=== PATIENT | female | born 1985 | race Caucasian/White ===

== ENCOUNTER 2017-02-18 22:08 | Emergency (ER) | payer BC, OTHER ==
[~2017-02-18] VITALS: Ht 162.6 cm; Wt 137.2 kg
[~2017-02-18 22:08] MED LIST: AZAT50TA17 PO; CLON0.5T3 PO; DICY10CA55 PO
[2017-02-18 22:10] VITALS: TEMP 36.6; Ht 162.6 cm; Wt 137.2 kg
[2017-02-18] MEDS ORDERED: ONDANSETRON INJ 2 MG/ML 2 ML VIAL IV STA (22:51)
[2017-02-18] MEDS ORDERED: SODIUM CHLORIDE 0.9% 1000ML 1,000 ML IV ONE (23:00)
[2017-02-18] MEDS ORDERED: MoRPHine SULFATE 4 MG/ML 1 ML CARP\\VIAL IV ONE (23:00)
[2017-02-18] MEDS ORDERED: SERT50TA PO (23:04)
[2017-02-18 23:24] LABS: BASO % 0.3 %; BASO ABS # 0.03 K/uL (0-0.2); COMPLETE YES; EOS % 1.1 %; IG% 0.3 %; LYMPH % 25.7 %; LYMPH ABS # 2.59 K/uL (1.2-3.4); MEAN CELL VOLUME 87.6 fL (80-100); MEAN CORPUSCULAR HEMOGLOBIN 29.7 pg (25-34); MEAN CORPUSCULAR HGB CONC 33.9 g/dl (32-36); MEAN PLATELET VOLUME 8.9 fL (7.4-10.4); MONO % 6.9 %; NEUT % 65.7 %; PLATELET COUNT 278 K/uL (130-400); RED BLOOD COUNT 4.11 M/uL (4.2-5.4); WHITE BLOOD COUNT 10.08 K/uL (4.8-10.8)
[2017-02-18 23:27] LABS: URINE APPEARANCE TURBID (CLEAR); URINE COLOR ORANGE; URINE EPITHELIAL CELL AUTO >30 /lpf (0-5); URINE NITRITE POS (NEG); URINE SPECIFIC GRAVITY 1.043 (1.000-1.030); UROBILINOGEN NEG (NEG); ZZUR CULT IF INDIC CLEAN CATCH NO
[2017-02-18 23:48] LABS: MANUAL MICROSCOPIC REQUIRED? NO; REVIEW REQ? NO; URINE BILIRUBIN NEG (NEG)
[2017-02-18 23:53] LABS: ALB/GLOB RATIO 0.7 (0.9-2); BUN/CREATININE RATIO 10.2 (10-20); CALCIUM 8.5 mg/dl (8.5-10.1); CREATININE 0.8 mg/dl (0.60-1.20)
[2017-02-18 23:55] LABS: POTASSIUM 3.7 mmol/L (3.5-5.1)
[2017-02-19] MEDS ORDERED: KETOROLAC TROMETHAMINE 30 MG/ML VIAL IV STA (00:44)
[2017-02-19 01:04] VITALS: BP 137/85; PULSE 91; O2SAT 100
--- NOTE | 2017-02-19 02:35 | EMERGENCY ROOM VISIT NOTE ---
History First contact with patient: 22:36 Chief Complaint: VAGINAL BLEEDING Stated Complaint: VAGINAL BLEEDING,CRAMPING History of Present Illness The patient is a 31 year old female who presents to the Emergency Room with complaints of vaginal bleeding that began about 2 hours ago. The patient states that she was standing in her kitchen, when she felt a gush of blood. She went to the bathroom and was passing large amounts of blood and clots. She then began with some abdominal cramping that is a little worse in the right side of her belly. She does not believe that she is . She states that her last menstrual period was 6 weeks ago. She has not taken anything over-the- counter for her discomfort. She rates her overall pain a 3/10. Review of Systems More than 10 systems were reviewed and otherwise negative with the exception of history of present illness. Past Medical/Surgical History Medical Problems: (1) Crohn's disease (2) Rectal fistula Surgical Problems: (1) s/p adenoidectomy (2) S/p total colectomy (3) s/p tympanostomy Family History Diabetes Gallbladder disease Hypertension Kidney disease/stones Social History Smoking Status: Never Smoker Alcohol Use: none Drug Use: none Marital Status: Occupation Status: employed Current/Historical Medications Scheduled Azathioprine (Imuran), 100 MG PO QAM Sertraline (Zoloft), 50 MG PO DAILY Scheduled PRN Clonazepam (Klonopin), 0.5 MG PO TID PRN for Anxiety Allergies Coded Allergies: Infliximab (Verified Allergy, Severe, SOB, FACE FLUSHING, 02/18/17) Physical Exam Vital Signs Date Time Temp Pulse Resp B/P (MAP) Pulse Ox O2 Delivery O2 Flow Rate FiO2 02/19/17 01:04 91 16 137/85 100 02/18/17 22:10 36.6 98 18 149/88 99 Room Air Pain Rating (0-10): 2.0 Physical Exam VITALS: Vitals are noted on the nurse's note and reviewed by myself. Vital signs stable. GENERAL: Well-developed, well-nourished, white female, who is in no acute distress and resting comfortably. Patient is cooperative with the examination. HEAD: Normocephalic atraumatic. HEART: Regular rate and rhythm without murmurs gallops or rubs. LUNGS: Clear to auscultation bilaterally without wheezes, rales or rhonchi. No retractions or accessory muscle use. ABDOMEN: Positive normal bowel sounds x 4. Soft, nontender, without masses or organomegaly. No guarding or rebound tenderness. No significant lower/pelvic tenderness. No CVA tenderness. MUSCULOSKELETAL: No muscle atrophy, erythema, or edema noted. Full range of motion without joint tenderness in all extremities. Medical Decision & Procedures ER Provider Diagnostic Interpretation: Preliminary Findings Only See Final Report For Complete Findings US PELVIC/ENDOVAG: Endometrium is unremarkable measuring 15 mm. The uterus is unremarkable. No masses. Nabothian cysts are noted within the cervix. Simple cyst seen within the right ovary measuring up to 2.7 cm. Otherwise, the ovaries are unremarkable. No free fluid within the pelvis. Laboratory Results 02/18/17 23:05 Red Blood Count 4.11, Mean Corpuscular Volume 87.6, Mean Corpuscular Hemoglobin 29.7, Mean Corpuscular Hemoglobin Concent 33.9, Mean Platelet Volume 8.9, Neutrophils (%) (Auto) 65.7, Lymphocytes (%) (Auto) 25.7, Monocytes (%) (Auto) 6.9, Eosinophils (%) (Auto) 1.1, Basophils (%) (Auto) 0.3, Neutrophils # (Auto) 6.62, Lymphocytes # (Auto) 2.59, Monocytes # (Auto) 0.70, Eosinophils # (Auto) 0.11, Basophils # (Auto) 0.03 02/18/17 23:05 Test 02/18/17 23:05 White Blood Count 10.08 K/uL (4.8-10.8) Red Blood Count 4.11 M/uL (4.2-5.4) Hemoglobin 12.2 g/dL (12.0-16.0) Hematocrit 36.0 % (37-47) Mean Corpuscular Volume 87.6 fL (80-100) Mean Corpuscular Hemoglobin 29.7 pg (25-34) Mean Corpuscular Hemoglobin Concent 33.9 g/dl (32-36) Platelet Count 278 K/uL (130-400) Mean Platelet Volume 8.9 fL (7.4-10.4) Neutrophils (%) (Auto) 65.7 % Lymphocytes (%) (Auto) 25.7 % Monocytes (%) (Auto) 6.9 % Eosinophils (%) (Auto) 1.1 % Basophils (%) (Auto) 0.3 % Neutrophils # (Auto) 6.62 K/uL (1.4-6.5) Lymphocytes # (Auto) 2.59 K/uL (1.2-3.4) Monocytes # (Auto) 0.70 K/uL (0.11-0.59) Eosinophils # (Auto) 0.11 K/uL (0-0.5) Basophils # (Auto) 0.03 K/uL (0-0.2) RDW Standard Deviation 45.7 fL (36.4-46.3) RDW Coefficient of Variation 14.1 % (11.5-14.5) Immature Granulocyte % (Auto) 0.3 % Immature Granulocyte # (Auto) 0.03 K/uL (0.00-0.02) Urine Color ORANGE Urine Appearance TURBID (CLEAR) Urine pH 5.0 (4.5-7.5) Urine Specific [place] 1.043 (1.000-1.030) Urine Protein 1+ (NEG) Urine Glucose (UA) NEG (NEG) Urine Ketones TRACE (NEG) Urine Occult Blood 3+ (NEG) Urine Nitrite POS (NEG) Urine Bilirubin NEG (NEG) Urine Urobilinogen NEG (NEG) Urine Leukocyte Esterase SMALL (NEG) Urine WBC (Auto) 5-10 /hpf (0-5) Urine RBC (Auto) >30 /hpf (0-4) Urine Hyaline Casts (Auto) 5-10 /lpf (0-5) Urine Epithelial Cells (Auto) >30 /lpf (0-5) Urine Bacteria (Auto) NEG (NEG) Urine Test NEG (NEG) Anion Gap 10.0 mmol/L (3-11) Est Creatinine Clear Calc Drug Dose 142.4 ml/min Estimated GFR () 114.7 Estimated GFR (Non- 98.9 BUN/Creatinine Ratio 10.2 (10-20) Calcium Level 8.5 mg/dl (8.5-10.1) Total Bilirubin 0.3 mg/dl (0.2-1) Aspartate Amino Transf (AST/SGOT) 19 U/L (15-37) Alanine Aminotransferase (ALT/SGPT) 25 U/L (12-78) Alkaline Phosphatase 83 U/L (45-117) Total Protein 8.3 gm/dl (6.4-8.2) Albumin 3.3 gm/dl (3.4-5.0) Globulin 5.0 gm/dl (2.5-4.0) Albumin/Globulin Ratio 0.7 (0.9-2) Human Chorionic Gonadotropin, Quant < 1 mIU/mL Chemistry Specimen Hemolysis Medications Administered Medications (Trade) Dose Ordered Sig/[place] Route Start Time Stop Time Status Last Admin Dose Admin Morphine Sulfate (MoRPHine SULFATE INJ) 4 mg NOW ONCE IV 02/18/17 23:00 02/18/17 23:01 DC 02/18/17 23:27 4 MG Sodium Chloride 1,000 ml @ 999 mls/hr Q1H1M ONCE IV 02/18/17 23:00 02/19/17 00:00 DC 02/18/17 23:27 999 MLS/HR Ondansetron HCl (Zofran Inj) 4 mg NOW STAT IV 02/18/17 22:51 02/18/17 22:53 DC 02/18/17 23:27 4 MG Ketorolac Tromethamine (Toradol Inj) 30 mg NOW STAT IV 02/19/17 00:44 02/19/17 00:45 DC 02/19/17 00:49 30 MG ED Course Physical exam and history were performed. Nursing notes and EMR were reviewed. Patient appears to have vaginal bleeding for the past 2 hours. The patient states her last menses was 6 weeks ago. IV access was established and labs were obtained. Urine was negative. The patient was hydrated medicated as above. Pelvic exam was discussed and deferred pending blood work and ultrasound. The patient's blood work is as above and was reviewed. She does not have a significant elevated white blood cell count, gross anemia, bandemia, or significant electrolyte imbalance. Her hCG quantitative is less than 1. Ultrasound does not show evidence of significant intrauterine findings. She does have a right sided ovarian cyst, and this may correlate with her right- sided pelvic pain. Overall the patient felt much better after hydration medication here in the department. She is certainly not hemorrhaging, and her bleeding has slowed significantly. Clinically I suspect that she is having the start of her menses , as her cycle appears atypical. She does have an appointment tomorrow with her primary care physician for further care and management. It seems reasonable that she follow up with them for further care and management. The patient was pleased with this plan and voiced understanding. She was discharged home under the care of a male tape rules printing machine operator who is acting as the river driver. The chart was completed utilizing [email or web address] Speech Voice Recognition Software. Grammatical errors, random word insertions, pronoun errors, and incomplete sentences are an occasional consequence of this system due to software limitations, ambient noise, and hardware issues. Any formal questions or concerns about the content, text, or information contained within the body of this dictation should be directly addressed to the provider for clarification. . Medical Decision Differential diagnosis: Etiologies such as ectopic , dysfunction uterine bleeding, bleeding dyscrasia, trauma, infection, as well as others were entertained. Impression Primary Impression: Vaginal bleeding Departure Information Dispostion Home / Self-Care Condition FAIR Referrals Honey Nolasco D.O. (PCP) Forms HOME CARE DOCUMENTATION FORM, IMPORTANT VISIT INFORMATION Patient Instructions My [facility] Additional Instructions You were seen and evaluated today on an emergency basis only. This is not a substitute for, or an effort to provide, complete comprehensive medical care. It is not possible to recognize and treat all injuries or illnesses in a single emergency department visit. For this reason it is recommended that you followup with your primary care physician tomorrow as scheduled. For baseline pain relief you may alternate ibuprofen and acetaminophen every 4 hours for pain control. Take 600 mg ibuprofen (Advil) and then 4 hours later take 1000 mg acetaminophen (Tylenol). Do not take more than 3000 mg acetaminophen in a single day. You are welcome to return to the emergency department anytime with new, worsening, or concerning symptoms.
--- NOTE | 2017-02-19 06:48 | DIAGNOSTIC IMAGING REPORT ---
EXAMINATION: PELVIC ULTRASOUND (transabdominal and endovaginal scanning) CLINICAL HISTORY: Vag bleeding COMPARISON STUDY: 02/18/2015 FINDINGS: The uterus measured 9.3 x 5 x 6.1 cm. The endometrial stripe measured 15 mm. The right ovary measured 51 x 20 x 29 mm. There is a dominant 27 mm follicle.. The left ovary measured 38 x 30 x 29 mm.. There is no ultrasonographic evidence of ovarian torsion. It should be noted that ovarian torsion can be present with normal Doppler ultrasonographic findings. There was no evidence of pathologic free pelvic fluid. IMPRESSION: 1. 15 mm endometrial stripe 2. No uterine masses identified. 3. 27 mm right ovarian follicle Electronically signed by: Edy Moon M.D. 02/19/2017 6:46 AM Dictated Date/Time: 02/19/2017 6:45 AM
[2017-06-13] MEDS ORDERED: DICY10CA55 PO (11:49)
[2017-06-13] MEDS ORDERED: DROS1TAB24 PO (11:49)
== END 2017-02-19 01:05 | disposition home or self-care (01) ==
LOC: C.EDB 22:09 → C.EDC 02-19 01:05
DX: N93.9 Abnormal uterine and vaginal bleeding, unspecified (principal); N83.201 Unspecified ovarian cyst, right side; K50.90 Crohn's disease, unspecified, without complications; Z90.49 Acquired absence of other specified parts of digestive tract; Z83.3 Family history of diabetes mellitus; Z82.49 Family history of ischemic heart disease and other diseases of the circulatory system; Z84.1 Family history of disorders of kidney and ureter; Z79.899 Other long term (current) drug therapy

== ENCOUNTER → 2017-06-21 | Day surgery (SDC) | payer BC ==
[2017-06-13 11:49] VITALS: BMI 51.0
[~2017-06-21] VITALS: Ht 162.6 cm; Wt 136.4 kg
[~2017-06-21] MED LIST changes: +DROS1TAB24 PO; +KETAMINE HCL INJ 50 MG/ML 10 ML VIAL ONE; +LIDOCAINE HCL 2% 2 ML VIAL (20MG/ML) ONE; +MIDAZOLAM HCL 1 MG/ML 2ML VIAL ONE; +OXYC1TAB3 PO; +PROPOFOL IV EMULSION 10 MG/ML 20 ML VIAL IV ONE; +SERT50TA PO; +SODIUM CHLORIDE 0.9% 500ML 500 ML IV ONE; +SODIUM CHLORIDE 0.9% INJ 10 ML VIAL ONE
[2017-06-21 08:08] VITALS: Ht 162.6 cm; Wt 136.4 kg
[2017-06-21 08:15] VITALS: TEMP 36.8
--- NOTE | 2017-06-21 08:53 | Endo History and Physical ---
History & Physical Date of Service: Jun 21, 2017. Chief Complaint: CHRONS Referring Physician: DR. AGUEDA SNEED History of Present Illness crohns Past Medical History Reflux, Other Past Surgical History Hx Cardiac Surgery: No Hx Internal Defibrillator: No Hx Pacemaker: No Hx Abdominal Surgery: Yes (COLON RESECTION) Hx of Implantable Prosthesis: No Hx Post-Op Nausea and Vomiting: No Hx Cancer Surgery: No Hx Thoracic Surgery: No Hx Orthopedic: No Hx Urinary Tract Surgery: No Family History None Social History Smoking Status: Never Smoker Hx Substance Use: No Hx Alcohol Use: No Allergies Coded Allergies: Infliximab (Verified Allergy, Severe, SOB, FACE FLUSHING, 06/21/17) Current Medications Reported Home Medications Medications Dose Route/Sig Max Daily Dose Days Date Category Yun (Drospirenone-Ethinyl Estradiol) 1 Tab Tab 1 Tab PO HS 06/13/17 Reported Bentyl (Dicyclomine Hcl) 10 Mg Cap 10 Mg PO QID PRN 06/13/17 Reported Zoloft (Sertraline HCl) 50 Mg Tab 50 Mg PO HS 02/18/17 Reported Klonopin (Clonazepam) 0.5 Mg Tab 0.5 Mg PO TID PRN 12/14/15 Reported Imuran (Azathioprine) 50 Mg Tab 2 Tabs PO QAM 01/31/14 Reported Vital Signs Weight (Kilograms): 136.36 Height (Feet): 5 Height (Inches): 4 Date Time Temp Pulse Resp B/P (MAP) Pulse Ox O2 Delivery O2 Flow Rate FiO2 06/21/17 08:15 36.8 99 20 107/91 (96) 97 Room Air Physical Exam General Appearance: WD/WN, no apparent distress Assessment and Plan colonoscopy today
--- NOTE | 2017-06-21 09:25 | GI REPORT ---
Procedure Date: 06/21/2017 8:58 AM Procedure: Colonoscopy Indications: High risk colon cancer surveillance: Crohn's small and large intestine Medicines: Propofol per Anesthesia Complications: No immediate complications. Estimated blood loss: Minimal. Estimated Blood Loss: Estimated blood loss was minimal. Procedure: Pre-Anesthesia Assessment: - Prior to the procedure, a History and Physical was performed, and patient medications, allergies and sensitivities were reviewed. The patient's tolerance of previous anesthesia was reviewed. - The risks and benefits of the procedure and the sedation options and risks were discussed with the patient. All questions were answered and informed consent was obtained. - Patient identification and proposed procedure were verified prior to the procedure by the physician and the nurse. The procedure was verified in the pre-procedure area in the procedure room. - Mental Status Examination: alert and oriented. Airway Examination: normal oropharyngeal airway and neck mobility. Respiratory Examination: clear to auscultation. CV Examination: normal. Abdominal Examination: bowel sounds present, abdomen soft and non-tender, no masses or organomegaly noted. - ASA Grade Assessment: III - A patient with severe systemic disease. After I obtained informed consent, the scope was passed under direct vision. Throughout the procedure, the patient's blood pressure, pulse, and oxygen saturations were monitored continuously. The Scope was introduced through the anus and advanced to the ileocolonic anastomosis. The colonoscopy was performed without difficulty. The patient tolerated the procedure well. The quality of the bowel preparation was good. Findings: The perianal and digital rectal examinations were normal. Pertinent negatives include normal sphincter tone and no palpable rectal lesions. The omar-terminal ileum appeared normal. Biopsies were taken with a cold forceps for histology. Verification of patient identification for the specimen was done by the physician and nurse using the patient's name and date. Estimated blood loss was minimal. There was evidence of a prior end-to-end ileo-colonic anastomosis at 35 cm proximal to the anus. This was patent and was characterized by healthy appearing mucosa and visible sutures. The anastomosis was traversed. Normal mucosa was found in the entire colon. Biopsies were taken with a cold forceps for histology. Verification of patient identification for the specimen was done by the physician and nurse using the patient's name and date. Estimated blood loss was minimal. The retroflexed view of the distal rectum and anal verge was normal and showed no anal or rectal abnormalities. Impression: - The examined portion of the ileum was normal. Biopsied. - Patent end-to-end ileo-colonic anastomosis, characterized by healthy appearing mucosa and visible sutures. - Normal mucosa in the entire examined colon. Biopsied. - The distal rectum and anal verge are normal on retroflexion view. Recommendation: - Await pathology results. - Continue present medications. - Discharge patient to home. Rose Curiel D.O. Rose Curiel, 06/21/2017 9:24:39 AM This report has been signed electronically. Note Initiated On: 06/21/2017 8:58 AM I attest to the content of the Intraoperative Record and orders documented therein, exceptions below
--- NOTE | 2017-06-21 09:25 | Discharge Instructions ---
Endoscopy Patient Instructions Date / Procedure(s) Performed Jun 21, 2017. Colonoscopy Allergy Information Coded Allergies: Infliximab (Verified Allergy, Severe, SOB, FACE FLUSHING, 06/21/17) Discharge Date / Findings Jun 21, 2017. healthy appearing ileum and colon mucosa Medication Instructions Restart Stopped Medication(s): OK to resume all home medications Provider Instructions Activity Restrictions - No exercising or heavy lifting for 24 hours. - Do not drink alcohol the day of the procedure. - Do not drive a car or operate machinery until the day after the procedure. - Do not make any important decisions or sign important papers in 24 hours after the procedure. Following Day: - Return to full activity which may include returning to work/school. Diet Start your diet with liquids and light foods (jello, soup, juice, toast). Then eat your usual diet if not nauseated. Treatment For Common After Affects For mild abdominal pain, bloating, or excessive gas: - Rest - Eat lightly - Lie on right side Follow-Up Information Follow-up with DR. AGUEDA SNEED as scheduled Anesthesia Information What You Should Know You have had a procedure that required some medicine to reduce anxiety and discomfort. This treatment is called moderate sedation. After receiving the treatment, you may be sleepy, but you will be able to breathe on your own. The effects of the treatment may last for several hours. Follow these instructions along with Activity/Diet recommendations noted above: * Do NOT do anything where dizziness or clumsiness would be dangerous. * Rest quietly at home today, then you can be up and about tomorrow. * Have a responsible person stay with you the rest of today. * You may have had an I.V. today. If so, you may take the dressing off later today. Recommendations Call your doctor if: * Trouble breathing * Continuous vomiting for more than 24 hours * Temperature above 101 degrees * Severe abdominal pain or bloating * Pain not relieved by pain medicine ordered * There is increased drainage or redness from any incision * A large amount of rectal bleeding greater than 2-3 tablespoons. (If you had a polyp/s removed or have hemorrhoids, a small amount of blood - from the rectum is to be expected.) * You have any unanswered questions or concerns. IN THE EVENT OF A SERIOUS EMERGENCY, GO TO THE NEAREST EMERGENCY ROOM Your discharge instructions were prepared by provider Rose Suvock. Patient Instructions Signature Page Mayuri Horner Patient (or Guardian) Signature/Date: I have read and understand the instructions given to me by my caregivers. Caregiver/RN/Doctor Signature/Date: The above-named patient and/or guardian has received patient instructions on this date. + Original Patient Signature Page (only) stays with chart. Please make copy for patient.
--- NOTE | 2017-06-21 09:44 | Anesthesiology Progress Note ---
Anesthesia Post Op Note Date & Time Jun 21, 2017 at 09:44 Vital Signs Pain Intensity: 0 Vital Signs Past 12 Hours Date Time Temp Pulse Resp B/P (MAP) Pulse Ox O2 Delivery O2 Flow Rate FiO2 06/21/17 09:34 77 20 128/78 (95) 97 Room Air 06/21/17 09:19 83 20 143/88 (106) 98 Mask 5 06/21/17 08:15 36.8 99 20 107/91 (96) 97 Room Air Notes Mental Status: alert / awake / arousable, participated in evaluation Pt Amnestic to Procedure: Yes Nausea / Vomiting: adequately controlled Pain: adequately controlled Airway Patency, RR, SpO2: stable & adequate BP & HR: stable & adequate Hydration State: stable & adequate Anesthetic Complications: no major complications apparent
[2017-06-21 09:50] VITALS: BP 140/89; PULSE 73; O2SAT 98
== END | disposition home or self-care (01) ==
LOC: C.GI 07:59
PROVIDERS: ATTEND Internal Medicine
DX: K50.80 Crohn's disease of both small and large intestine without complications (principal); Z98.0 Intestinal bypass and anastomosis status; K21.9 Gastro-esophageal reflux disease without esophagitis; Z79.899 Other long term (current) drug therapy

== ENCOUNTER 2017-06-22 06:39 | Emergency (ER) | payer BC ==
[~2017-06-22] VITALS: Ht 162.6 cm; Wt 135.0 kg
[~2017-06-22 06:39] MED LIST changes: -KETAMINE HCL INJ 50 MG/ML 10 ML VIAL ONE; -LIDOCAINE HCL 2% 2 ML VIAL (20MG/ML) ONE; -MIDAZOLAM HCL 1 MG/ML 2ML VIAL ONE; -OXYC1TAB3 PO; -PROPOFOL IV EMULSION 10 MG/ML 20 ML VIAL IV ONE; -SODIUM CHLORIDE 0.9% 500ML 500 ML IV ONE; -SODIUM CHLORIDE 0.9% INJ 10 ML VIAL ONE
[2017-06-22 06:42] VITALS: TEMP 37; Ht 162.6 cm; Wt 135.0 kg
[2017-06-22] MEDS ORDERED: ONDANSETRON INJ 2 MG/ML 2 ML VIAL IV STA (06:57)
[2017-06-22] MEDS ORDERED: SODIUM CHLORIDE 0.9% 1000ML 1,000 ML IV STA (06:57)
[2017-06-22] MEDS ORDERED: SODIUM CHLORIDE 0.9% 1000ML 1,000 ML IV ONE (06:57)
[2017-06-22] MEDS ORDERED: MoRPHine SULFATE 4 MG/ML 1 ML CARP\\VIAL IV STA (06:57)
--- NOTE | 2017-06-22 06:59 | EMERGENCY ROOM VISIT NOTE ---
History Report prepared by Yasmine: Nelson Sarmiento Under the Supervision of: Dr. Liam Zee M.D. First contact with patient: 06:47 Chief Complaint: ABDOMINAL PAIN Stated Complaint: ABD PAIN AFTER COLONOSCOPY History of Present Illness The patient is a 31 year old female who presents to the Emergency Room with complaints of constant centralized cramping lower abdominal pain that began yesterday. She rates her pain a 6/10 in severity. She has a past medical history of Crohn's disease and states she has only a small portion of her small intestine. Yesterday, she received a diagnostic colonoscopy procedure which was negative for Crohn's symptoms. She notes that after the procedure, she was having some mild pain in her abdomen, but they believed this to be gas related. She was passing gas normally and having normal bowel movements. However, this morning she woke up with the pain worse than yesterday. She is also experiencing nausea with some back pain when she breathes. She denies any fevers , headache, vomiting, melena, hematochezia, pain or swelling in her legs, trauma , injury, or abnormal urinary symptoms. She denies any other medical problems. Her last menstrual cycle was last week, and she states that she is not . Source of History: patient, family Onset: yesterday Position: abdomen (centralized lower) Symptom Intensity: 6/10 Quality: cramping Timing: constant, worsening Associated Symptoms: + nausea, + back pain, No fevers, No headache, No vomiting, No melena, No hematochezia, No urinary symptoms Review of Systems See HPI for pertinent positives & negatives. A total of 10 systems reviewed and were otherwise negative. Past Medical & Surgical Medical Problems: (1) Crohn's disease (2) Rectal fistula Surgical Problems: (1) s/p adenoidectomy (2) S/p total colectomy (3) s/p tympanostomy Old medical records were reviewed. Nurse's notes were reviewed and I agree with. Family History Diabetes Gallbladder disease Hypertension Kidney disease/stones Social History Smoking Status: Never Smoker Alcohol Use: none Drug Use: none Marital Status: Occupation Status: employed Current/Historical Medications Scheduled Azathioprine (Imuran), 2 TABS PO QAM Drospirenone-Ethinyl Estradiol (Yun), 1 TAB PO HS Sertraline (Zoloft), 50 MG PO HS Scheduled PRN Clonazepam (Klonopin), 0.5 MG PO TID PRN for Anxiety Dicyclomine Hcl (Bentyl), 10 MG PO QID PRN for ABDOMINAL PAIN Oxycodone Immediate Rel Tab (Roxicodone Ir), 1-2 TAB PO Q4H PRN for Severe Pain Allergies Coded Allergies: Infliximab (Verified Allergy, Severe, SOB, FACE FLUSHING, 06/22/17) Physical Exam Vital Signs Date Time Temp Pulse Resp B/P (MAP) Pulse Ox O2 Delivery O2 Flow Rate FiO2 06/22/17 09:09 85 20 159/98 97 Room Air 06/22/17 08:04 82 20 151/87 98 Room Air 06/22/17 06:42 37.0 107 16 156/98 98 Room Air Physical Exam General: Non ill appearing young female, Well developed well nourished in no acute distress, breathing comfortably on room air. Normal speech HEENT: Normal cephalic atraumatic. Pupils are equal round and reactive to light. Extraocular movements are intact. Oropharynx is pink with moist mucous membranes. No swelling of the mouth lips or tongue. Neck: Supple with a midline trachea. No meningeal signs or stiffness, no JVD or bruits. No Stridor. Chest: Clear to auscultation bilaterally. No wheezes or rhonchi. No increased work of breathing. Heart: regular rate and rhythm. Abdomen: Soft, minimal tenderness to the lower abdomen, no peritonitis, nondistended without rebound guarding or rigidity. Extremities: No cyanosis clubbing or edema. No calf tenderness or assymetry Spine/Back. Non tender to palpation. No CVA tenderness Skin: Good turgor without rashes. Neurologic exam: Cranial nerves two through 12 are intact. Motor and sensation are intact and symmetrical throughout. Medical Decision & Procedures ER Provider Diagnostic Interpretation: Radiology results as stated below per my review and radiologist interpretation: ABDOMEN 2VIEW W/PA CHEST RTN HISTORY: 31 years-old Female ABDOMINAL PAIN/GI acute generalized abdominal pain with recent colonoscopy COMPARISON: Chest radiograph 12/14/2015, CT abdomen 02/18/2015 TECHNIQUE: PA view of the chest with erect and supine views of the abdomen FINDINGS: Cardiac silhouette is upper limits of normal, likely secondary to mild hypoinflation. No pneumothorax, pleural effusion, focal airspace consolidation or overt pulmonary edema. No pneumoperitoneum. Bowel gas pattern is nonobstructive. No urolith or fracture. Liver appears enlarged IMPRESSION: 1. No acute cardiopulmonary process. 2. Nonobstructive bowel gas pattern without pneumoperitoneum. 3. Hepatomegaly redemonstrated. The above report was generated using voice recognition software. It may contain grammatical, syntax or spelling errors. Electronically signed by: Tulio Tidwell M.D. 06/22/2017 8:06 AM Dictated Date/Time: 06/22/2017 8:03 AM Laboratory Results 06/22/17 07:10 Red Blood Count 4.24, Mean Corpuscular Volume 86.6, Mean Corpuscular Hemoglobin 29.7, Mean Corpuscular Hemoglobin Concent 34.3, Mean Platelet Volume 8.8, Neutrophils (%) (Auto) 70.5, Lymphocytes (%) (Auto) 21.1, Monocytes (%) (Auto) 7.1, Eosinophils (%) (Auto) 0.9, Basophils (%) (Auto) 0.1, Neutrophils # (Auto) 6.57, Lymphocytes # (Auto) 1.96, Monocytes # (Auto) 0.66, Eosinophils # (Auto) 0.08, Basophils # (Auto) 0.01 06/22/17 07:10 Test 06/22/17 07:10 White Blood Count 9.31 K/uL (4.8-10.8) Red Blood Count 4.24 M/uL (4.2-5.4) Hemoglobin 12.6 g/dL (12.0-16.0) Hematocrit 36.7 % (37-47) Mean Corpuscular Volume 86.6 fL (80-100) Mean Corpuscular Hemoglobin 29.7 pg (25-34) Mean Corpuscular Hemoglobin Concent 34.3 g/dl (32-36) Platelet Count 281 K/uL (130-400) Mean Platelet Volume 8.8 fL (7.4-10.4) Neutrophils (%) (Auto) 70.5 % Lymphocytes (%) (Auto) 21.1 % Monocytes (%) (Auto) 7.1 % Eosinophils (%) (Auto) 0.9 % Basophils (%) (Auto) 0.1 % Neutrophils # (Auto) 6.57 K/uL (1.4-6.5) Lymphocytes # (Auto) 1.96 K/uL (1.2-3.4) Monocytes # (Auto) 0.66 K/uL (0.11-0.59) Eosinophils # (Auto) 0.08 K/uL (0-0.5) Basophils # (Auto) 0.01 K/uL (0-0.2) RDW Standard Deviation 42.3 fL (36.4-46.3) RDW Coefficient of Variation 13.4 % (11.5-14.5) Immature Granulocyte % (Auto) 0.3 % Immature Granulocyte # (Auto) 0.03 K/uL (0.00-0.02) Urine Color YELLOW Urine Appearance CLEAR (CLEAR) Urine pH 5.0 (4.5-7.5) Urine Specific Elliott 1.016 (1.000-1.030) Urine Protein NEG (NEG) Urine Glucose (UA) NEG (NEG) Urine Ketones NEG (NEG) Urine Occult Blood TRACE (NEG) Urine Nitrite NEG (NEG) Urine Bilirubin NEG (NEG) Urine Urobilinogen NEG (NEG) Urine Leukocyte Esterase NEG (NEG) Urine WBC (Auto) 1-5 /hpf (0-5) Urine RBC (Auto) 0-4 /hpf (0-4) Urine Hyaline Casts (Auto) 0 /lpf (0-5) Urine Epithelial Cells (Auto) 20-30 /lpf (0-5) Urine Bacteria (Auto) NEG (NEG) Urine Test NEG (NEG) Anion Gap 11.0 mmol/L (3-11) Est Creatinine Clear Calc Drug Dose 139.2 ml/min Estimated GFR () 113.0 Estimated GFR (Non- 97.5 BUN/Creatinine Ratio 11.5 (10-20) Calcium Level 9.3 mg/dl (8.5-10.1) Total Bilirubin 0.2 mg/dl (0.2-1) Direct Bilirubin < 0.1 mg/dl (0-0.2) Aspartate Amino Transf (AST/SGOT) 28 U/L (15-37) Alanine Aminotransferase (ALT/SGPT) 24 U/L (12-78) Alkaline Phosphatase 67 U/L (45-117) Total Protein 8.3 gm/dl (6.4-8.2) Albumin 3.3 gm/dl (3.4-5.0) Lipase 88 U/L (73-393) Laboratory studies as stated above per my review. Medications Administered Medications (Trade) Dose Ordered Sig/[place] Route Start Time Stop Time Status Last Admin Dose Admin Sodium Chloride 1,000 ml @ 999 mls/hr Q1H1M STAT IV 06/22/17 06:57 06/22/17 07:57 DC 06/22/17 07:10 999 MLS/HR Sodium Chloride 1,000 ml @ 150 mls/hr Q6H40M ONCE IV 06/22/17 06:57 06/22/17 09:43 DC 06/22/17 07:10 150 MLS/HR Morphine Sulfate (MoRPHine SULFATE INJ) 4 mg NOW STAT IV 06/22/17 06:57 06/22/17 06:58 DC 06/22/17 07:18 4 MG Ondansetron HCl (Zofran Inj) 4 mg NOW STAT IV 06/22/17 06:57 06/22/17 06:58 DC 06/22/17 07:17 4 MG Hydromorphone HCl (Dilaudid Inj) 1 mg NOW STAT IV 06/22/17 08:12 06/22/17 08:13 DC 06/22/17 08:16 1 MG ED Course 0647: Past medical records reviewed. The patient was evaluated in room B11B, and a complete history and physical examination were performed. 0657: Ordered Zofran Inj 4 mg IV, Morphine Sulfate 4 mg IV, Sodium Chloride 1000 ml @ 150 mls/hr IV, Sodium Chloride 1000 ml @ 999 mls/hr IV 0752: I tried to reassess the patient at this time, but she was at radiology. 0812: Ordered Dilaudid Inj 1 mg IV 0921: Upon reevaluation, the patient is resting. I discussed the results and treatment plan with her. She verbalized agreement of the treatment plan. The patient was discharged home. Medical Decision Differentials include, but are not limited to; bowel gas, complication from endoscopy, infection, and electrolyte or metabolic abnormality. This patient comes in as described above she has lower abdominal pain she do colonoscopy done yesterday. It does not sound like there is any biopsies and was just diagnostic apparently the colon looked well. She have a history of Crohn's. IV access was established and she was hydrated with IV normal saline. Acute abdominal series was done to rule out obstruction or free air. Blood work was obtained. She was given IV morphine and IV Zofran. She was reassessed frequently. There is no fever or white count to suggest infection. She is not . There is nothing to suggest a UTI. Required additional pain medication and was given Dilaudid 1 mg IV. Acute abdominal series does not show any free air or obstruction. She is feeling a lot better. Most likely this is related to her procedure yesterday with some gas. There is no evidence to suggest perforation or obstruction. She was given a small prescription for OxyIR that she can use if needed for pain. She was warned that it could make her drowsy do not take before drinking, driving, working. She should return if: increasing pain, worsening of symptoms, fever or chills, any new problems concerns. She was happy with plan discharge to home. [place] Drug Monitoring Program Search Results: patient reviewed within database, no issues identified Medication Reconcilliation Current Medication List: was personally reviewed by me Blood Pressure Screening Patient's blood pressure: Elevated blood pressure Blood pressure disposition: Elevated BP felt to be situational Impression Primary Impression: Lower abdominal pain Scribe Attestation The scribe's documentation has been prepared under my direction and personally reviewed by me in its entirety. I confirm that the note above accurately reflects all work, treatment, procedures, and medical decision making performed by me. Departure Information Dispostion Home / Self-Care Prescriptions Oxycodone Immediate Rel Tab (ROXICODONE IR) 5 Mg Tab 1-2 TAB PO Q4H Y for Severe Pain, #15 TAB Prov: Liam Zee M.D. 06/22/17 Referrals Honey Nolasco D.O. (PCP) Forms HOME CARE DOCUMENTATION FORM, IMPORTANT VISIT INFORMATION Patient Instructions My [facility] Additional Instructions Rest. Drink plenty of fluids. Return if: Fever, increasing pain, worsening of symptoms, any new problems or concerns For pain, may use OxyIR 5 mg, one or 2 pills every 4-6 hours as needed OxyIR may make you drowsy and do not take before drinking, driving, working Do not take OxyIR with alcohol or any other medications or narcotics that could sedate you. Follow-up with your doctor on Saturday for recheck.
[2017-06-22 07:26] LABS: BASO % 0.1 %; BASO ABS # 0.01 K/uL (0-0.2); COMPLETE YES; EOS % 0.9 %; HEMATOCRIT 36.7 % (37-47); IG% 0.3 %; LYMPH % 21.1 %; LYMPH ABS # 1.96 K/uL (1.2-3.4); MEAN CELL VOLUME 86.6 fL (80-100); MEAN CORPUSCULAR HEMOGLOBIN 29.7 pg (25-34); MEAN CORPUSCULAR HGB CONC 34.3 g/dl (32-36); MEAN PLATELET VOLUME 8.8 fL (7.4-10.4); MONO % 7.1 %; NEUT % 70.5 %; PLATELET COUNT 281 K/uL (130-400); RED BLOOD COUNT 4.24 M/uL (4.2-5.4); WHITE BLOOD COUNT 9.31 K/uL (4.8-10.8)
[2017-06-22 07:32] LABS: MANUAL MICROSCOPIC REQUIRED? NO; REVIEW REQ? NO; URINE APPEARANCE CLEAR (CLEAR); URINE BILIRUBIN NEG (NEG); URINE COLOR YELLOW; URINE EPITHELIAL CELL AUTO 20-30 /lpf (0-5); URINE NITRITE NEG (NEG); URINE SPECIFIC GRAVITY 1.016 (1.000-1.030); UROBILINOGEN NEG (NEG)
[2017-06-22 07:44] LABS: ALT/SGPT 24 U/L (12-78); BLOOD UREA NITROGEN 9 mg/dl (7-18); BUN/CREATININE RATIO 11.5 (10-20); CALCIUM 9.3 mg/dl (8.5-10.1); CARBON DIOXIDE 21 mmol/L (21-32); CHLORIDE 108 mmol/L (98-107); CREATININE 0.81 mg/dl (0.60-1.20); GLUCOSE 109 mg/dl (70-99); SODIUM 140 mmol/L (136-145)
[2017-06-22 07:47] LABS: ALKALINE PHOSPHATASE 67 U/L (45-117); AST/SGOT 28 U/L (15-37)
--- NOTE | 2017-06-22 08:07 | DIAGNOSTIC IMAGING REPORT ---
ABDOMEN 2VIEW W/PA CHEST RTN HISTORY: 31 years-old Female ABDOMINAL PAIN/GI acute generalized abdominal pain with recent colonoscopy COMPARISON: Chest radiograph 12/14/2015, CT abdomen 02/18/2015 TECHNIQUE: PA view of the chest with erect and supine views of the abdomen FINDINGS: Cardiac silhouette is upper limits of normal, likely secondary to mild hypoinflation. No pneumothorax, pleural effusion, focal airspace consolidation or overt pulmonary edema. No pneumoperitoneum. Bowel gas pattern is nonobstructive. No urolith or fracture. Liver appears enlarged IMPRESSION: 1. No acute cardiopulmonary process. 2. Nonobstructive bowel gas pattern without pneumoperitoneum. 3. Hepatomegaly redemonstrated. The above report was generated using voice recognition software. It may contain grammatical, syntax or spelling errors. Electronically signed by: Tulio Tidwell M.D. 06/22/2017 8:06 AM Dictated Date/Time: 06/22/2017 8:03 AM
[2017-06-22] MEDS ORDERED: HYDROmorphone INJ 1 MG/ML SYR IV STA (08:12)
[2017-06-22] MEDS ORDERED: OXYC1TAB3 PO (09:08)
[2017-06-22 09:09] VITALS: BP 159/98; PULSE 85; O2SAT 97
== END 2017-06-22 09:14 | disposition home or self-care (01) ==
LOC: C.EDB 06:40
DX: R10.30 Lower abdominal pain, unspecified (principal); K50.90 Crohn's disease, unspecified, without complications; Z83.3 Family history of diabetes mellitus; Z83.79 Family history of other diseases of the digestive system; Z82.49 Family history of ischemic heart disease and other diseases of the circulatory system; Z84.1 Family history of disorders of kidney and ureter

== ENCOUNTER 2017-11-03 15:57 | Emergency (ER) | payer BC ==
[~2017-11-03] VITALS: Ht 162.6 cm; Wt 139.6 kg
[~2017-11-03 15:57] MED LIST changes: +OXYC1TAB3 PO
[2017-11-03 16:04] VITALS: TEMP 36.7; Ht 162.6 cm; Wt 139.6 kg
--- NOTE | 2017-11-03 16:35 | EMERGENCY ROOM VISIT NOTE ---
History Report prepared by Yasmine: Nelson Sarmiento Under the Supervision of: Dr. Lillie Harper D.O. First contact with patient: 16:08 Chief Complaint: ABDOMINAL PAIN Stated Complaint: HAVE CHRONS, STOMACH PAIN, LIGHT HEADED, NAUSEA History of Present Illness The patient is a 32 year old female who presents to the Emergency Room with complaints of intermittent sharp lower abdominal pain that began three days ago. She rates her pain a 6/10 in severity. The patient has a past medical history of Crohn's disease that has been in remission for the past three years with an 80% partial colectomy. She also has a history of ovarian cysts as well, one of which ruptured in the past. A couple of days ago, the patient began having this lower abdominal discomfort with some mild lightheadedness. She has never felt lightheaded before. She notes that she became nauseated today. She denies any fevers, chills, vomiting, or abnormal urinary symptoms. She states that her Crohn's and ovarian cysts have felt similarly in the past. However, she normally gets fevers and chills with her Crohn's flares. She denies any changes to her menstrual cycles or pain with intercourse. She denies any sick contacts. Source of History: patient Onset: three days ago Position: abdomen (lower) Symptom Intensity: 6/10 Quality: sharp Timing: constant Associated Symptoms: + nausea, No fevers, No chills, No vomiting, No urinary symptoms Note: She is mildly lightheaded. Review of Systems See HPI for pertinent positives & negatives. A total of 10 systems reviewed and were otherwise negative. Past Medical & Surgical Medical Problems: (1) Crohn's disease (2) Rectal fistula Surgical Problems: (1) s/p adenoidectomy (2) S/p total colectomy (3) s/p tympanostomy Family History Diabetes Gallbladder disease Hypertension Kidney disease/stones Social History Smoking Status: Never Smoker Alcohol Use: none Drug Use: none Marital Status: Occupation Status: employed Current/Historical Medications Scheduled Azathioprine (Imuran), 2 TABS PO QAM Drospirenone-Ethinyl Estradiol (Yun), 1 TAB PO HS Sertraline (Zoloft), 50 MG PO HS Scheduled PRN Clonazepam (Klonopin), 0.5 MG PO TID PRN for Anxiety Dicyclomine Hcl (Bentyl), 10 MG PO QID PRN for ABDOMINAL PAIN Allergies Coded Allergies: Infliximab (Verified Allergy, Severe, SOB, FACE FLUSHING, 06/22/17) Physical Exam Vital Signs Date Time Temp Pulse Resp B/P (MAP) Pulse Ox O2 Delivery O2 Flow Rate FiO2 11/03/17 22:23 87 18 140/85 97 11/03/17 20:36 85 18 148/87 97 Room Air 11/03/17 19:09 87 18 150/92 98 Room Air 11/03/17 17:18 97 20 163/95 97 Room Air 11/03/17 16:04 36.7 110 20 161/93 98 Room Air Physical Exam GENERAL: alert, well appearing, well nourished, no distress, non-toxic, obese EYE EXAM: normal conjunctiva, PERRL and EOM's grossly intact OROPHARYNX: no exudate, no erythema, lips, buccal mucosa, and tongue normal and mucous membranes are moist NECK: supple, no nuchal rigidity, no adenopathy, non-tender LUNGS: Clear to auscultation. Normal chest wall mechanics, no wheezes/rhonchi/ rales HEART: no murmurs, S1 normal and S2 normal ABDOMEN: Obese, abdomen soft, mild bilateral lower discomfort, normo-active bowel sounds, no masses, no rebound or guarding. BACK: Back is symmetrical on inspection and there is no deformity, no midline tenderness, no CVA tenderness. SKIN: no rashes and no bruising UPPER EXTREMITIES: upper extremities are grossly normal. Normal range of motion and normal pulses. LOWER EXTREMITIES: No pitting edema. Normal range of motion and normal pulses. NEURO EXAM: Normal sensorium, cranial nerves II-XII grossly intact, normal speech, no gross weakness of arms, no gross weakness of legs. Medical Decision & Procedures ER Provider Diagnostic Interpretation: Radiology results have been interpreted by the radiologist and reviewed by me. CHEST AND ABDOMEN 2 VIEWS HISTORY: Nausea. Generalized abdominal pain. COMPARISON: FINDINGS: The lungs are clear. The cardiomediastinal silhouette is within normal limits. The liver appears enlarged, unchanged. There is no pneumoperitoneum or pneumatosis. The bowel gas pattern is unremarkable. No evidence for bowel obstruction. No pathologic calcifications. IMPRESSION: No acute cardiopulmonary process. No evidence for bowel obstruction. Persistent hepatomegaly. Electronically signed by: Roni Singh M.D. 11/03/2017 5:57 PM Dictated Date/Time: 11/03/2017 5:54 PM PELVIC ULTRASOUND, TRANSABDOMINAL AND TRANSVAGINAL HISTORY: lower abd pain, hx ovarian cysts COMPARISON: Pelvic ultrasound 02/18/2017. FINDINGS: Uterus: 10.0 x 4.6 x 4.3 cm. There are a few tiny nabothian cysts. Endometrial stripe: 9 mm in thickness. Right ovary: Only visualized transabdominally. Not well-visualized due to its high position and the adjacent bowel gas. However, this appears to be normal in size. Color flow was unable to be obtained due to the suboptimal visualization. Left ovary: Only visualized transabdominally. Normal in size and demonstrates normal color flow. This contains a 3.7 cm cyst. Miscellaneous:No pelvic free fluid. IMPRESSION: 1. Normal uterus. 2. A 3.7 cm left ovarian cyst. 2. The right ovary was not well visualized but appears to be normal in size. Electronically signed by: Roni Singh M.D. 11/03/2017 8:29 PM Dictated Date/Time: 11/03/2017 8:26 PM Laboratory Results 11/03/17 17:10 Red Blood Count 4.76, Mean Corpuscular Volume 88.2, Mean Corpuscular Hemoglobin 29.8, Mean Corpuscular Hemoglobin Concent 33.8, Mean Platelet Volume 8.9, Neutrophils (%) (Auto) 65.0, Lymphocytes (%) (Auto) 26.2, Monocytes (%) (Auto) 7.4, Eosinophils (%) (Auto) 1.0, Basophils (%) (Auto) 0.1, Neutrophils # (Auto) 6.66, Lymphocytes # (Auto) 2.68, Monocytes # (Auto) 0.76, Eosinophils # (Auto) 0.10, Basophils # (Auto) 0.01 11/03/17 17:10 Test 11/03/17 16:45 11/03/17 17:10 11/03/17 17:14 11/03/17 17:20 Influenza Type A Antigen Neg for Influ A (NEG) Influenza Type B Antigen Neg for Influ B (NEG) White Blood Count 10.24 K/uL (4.8-10.8) Red Blood Count 4.76 M/uL (4.2-5.4) Hemoglobin 14.2 g/dL (12.0-16.0) Hematocrit 42.0 % (37-47) Mean Corpuscular Volume 88.2 fL (80-100) Mean Corpuscular Hemoglobin 29.8 pg (25-34) Mean Corpuscular Hemoglobin Concent 33.8 g/dl (32-36) Platelet Count 296 K/uL (130-400) Mean Platelet Volume 8.9 fL (7.4-10.4) Neutrophils (%) (Auto) 65.0 % Lymphocytes (%) (Auto) 26.2 % Monocytes (%) (Auto) 7.4 % Eosinophils (%) (Auto) 1.0 % Basophils (%) (Auto) 0.1 % Neutrophils # (Auto) 6.66 K/uL (1.4-6.5) Lymphocytes # (Auto) 2.68 K/uL (1.2-3.4) Monocytes # (Auto) 0.76 K/uL (0.11-0.59) Eosinophils # (Auto) 0.10 K/uL (0-0.5) Basophils # (Auto) 0.01 K/uL (0-0.2) RDW Standard Deviation 43.0 fL (36.4-46.3) RDW Coefficient of Variation 13.3 % (11.5-14.5) Immature Granulocyte % (Auto) 0.3 % Immature Granulocyte # (Auto) 0.03 K/uL (0.00-0.02) Anion Gap 12.0 mmol/L (3-11) Est Creatinine Clear Calc Drug Dose 150.2 ml/min Estimated GFR () 121.1 Estimated GFR (Non- 104.5 BUN/Creatinine Ratio 11.4 (10-20) Calcium Level 9.2 mg/dl (8.5-10.1) Magnesium Level 1.7 mg/dl (1.8-2.4) Total Bilirubin 0.3 mg/dl (0.2-1) Aspartate Amino Transf (AST/SGOT) 17 U/L (15-37) Alanine Aminotransferase (ALT/SGPT) 25 U/L (12-78) Alkaline Phosphatase 66 U/L (45-117) Total Protein 8.7 gm/dl (6.4-8.2) Albumin 3.2 gm/dl (3.4-5.0) Globulin 5.5 gm/dl (2.5-4.0) Albumin/Globulin Ratio 0.6 (0.9-2) Lipase 91 U/L (73-393) Human Chorionic Gonadotropin, Qual NEG (NEG) Bedside Lactic Acid Venous 2.40 mmol/L (0.90-1.70) Urine Color YELLOW Urine Appearance CLOUDY (CLEAR) Urine pH 5.0 (4.5-7.5) Urine Specific [place] 1.027 (1.000-1.030) Urine Protein NEG (NEG) Urine Glucose (UA) NEG (NEG) Urine Ketones TRACE (NEG) Urine Occult Blood TRACE (NEG) Urine Nitrite NEG (NEG) Urine Bilirubin NEG (NEG) Urine Urobilinogen NEG (NEG) Urine Leukocyte Esterase NEG (NEG) Urine WBC (Auto) 1-5 /hpf (0-5) Urine RBC (Auto) 0-4 /hpf (0-4) Urine Hyaline Casts (Auto) 1-5 /lpf (0-5) Urine Epithelial Cells (Auto) >30 /lpf (0-5) Urine Bacteria (Auto) NEG (NEG) Urine Pathogenic Casts 0-3 GRANULAR CASTS /lpf (0) Urine Yeast (Auto) (NONE PRSENT) Date/Time Source Procedure Growth Status 11/03/17 17:20 Urine , Clean Catch Urine Culture - Final MORE THAN THREE TYPES OF ORGANISMS MO... Complete Laboratory results per my review. Medications Administered Medications (Trade) Dose Ordered Sig/[place] Route Start Time Stop Time Status Last Admin Dose Admin Sodium Chloride 1,000 ml @ 999 mls/hr Q1H1M STAT IV 11/03/17 16:36 11/03/17 17:36 DC 11/03/17 17:17 999 MLS/HR Ondansetron HCl (Zofran Inj) 4 mg NOW STAT IV 11/03/17 16:36 11/03/17 16:38 DC 11/03/17 17:17 4 MG Fentanyl Citrate (Fentanyl Inj) 50 mcg NOW STAT IV 11/03/17 16:36 11/03/17 16:38 DC 11/03/17 17:17 50 MCG Sodium Chloride 500 ml @ 999 mls/hr Q31M STAT IV 11/03/17 18:13 11/03/17 18:43 DC 11/03/17 19:03 999 MLS/HR Acetaminophen 100 ml @ 400 mls/hr NOW STAT IV 11/03/17 18:13 11/03/17 18:27 DC 11/03/17 19:04 400 MLS/HR Hydromorphone HCl (Dilaudid Inj) 0.5 mg NOW STAT IV 11/03/17 19:09 11/03/17 19:10 DC 11/03/17 20:34 0.5 MG Dicyclomine HCl (Bentyl Cap) 20 mg NOW ONCE PO 11/03/17 19:15 11/03/17 19:16 DC 11/03/17 19:25 20 MG Magnesium Sulfate (Magnesium Sulfate) 1 gm NOW STAT IV 11/03/17 20:35 11/03/17 20:36 DC 11/03/17 20:41 1 GM Oxycodone/ Acetaminophen (Percocet 5-325mg Tab) 1 tab NOW ONCE PO 11/03/17 21:00 11/03/17 21:01 DC 11/03/17 21:18 1 TAB Oxycodone/ Acetaminophen (Percocet 5/ 325MG Home Pack) 1 homepack UD ONCE PO 11/03/17 21:00 11/03/17 21:01 DC 11/03/17 22:25 1 HOMEPACK Ondansetron HCl (ZOFRAN ODT 4MG Home Pack) 1 homepack UD ONCE PO 11/03/17 21:00 11/03/17 21:01 DC 11/03/17 22:25 1 HOMEPACK ED Course 1608: The patient was evaluated in room A4. A complete history and physical exam was performed. 1636: Ordered Fentanyl Inj 50 mcg IV, Zofran Inj 4 mg IV, Sodium Chloride 1000 ml @ 999 mls/hr IV 1813: Ordered Acetaminophen 100 ml @ 400 mls/hr IV, Sodium Chloride 500 ml @ 999 mls/hr IV 1903: Upon reevaluation, the patient is still having pain. 1909: Ordered Dilaudid Inj 0.5 mg IV 5: Ordered Bentyl Cap 20 mg PO 2034: Ordered Magnesium Sulfate 1 gm IV 2043: The patient is feeling better at this time. I updated her on her results. 2100: Ordered Ondansetron HCl 1 homepack PO, Oxycodone/Acetaminophen 1 homepack PO, Oxycodone/Acetaminophen 1 tab PO Medical Decision Differential diagnosis: Etiologies such as appendicitis, diverticulitis, PUD, biliary pathology, UTI, pancreatitis, obstruction, mesenteric ischemia, aortic pathology, infections, inflammatory bowel disease, renal colic, as well as others were entertained. Patient well-appearing here, no evidence of acute infectious or inflammatory illness. Ovarian cyst noted on ultrasound. Patient improved, and agreeable with plan for close follow-up with [employer]VESTMENTS MANAGER. Discussed close monitoring symptoms given significant GI history. Discussed symptoms to watch and return for, hydration, pain medications and possible ADRs, she verbalized understanding was agreeable with plan. Patient with stable vital signs throughout, other labs reassuring. Medication Reconcilliation Current Medication List: was personally reviewed by me Blood Pressure Screening Patient's blood pressure: Elevated blood pressure Blood pressure disposition: Elevated BP felt to be situational Impression Primary Impression: Abdominal pain Additional Impression: Ovarian cyst Scribe Attestation The scribe's documentation has been prepared under my direction and personally reviewed by me in its entirety. I confirm that the note above accurately reflects all work, treatment, procedures, and medical decision making performed by me. Departure Information Dispostion Home / Self-Care Referrals Honey Nolasco D.O. Forms Call Back Authorization, HOME CARE DOCUMENTATION FORM, IMPORTANT VISIT INFORMATION Patient Instructions Cyst Ovarian Tx, [facility] Additional Instructions Please continue regular medications as prescribed. You may use the pain and nausea medication as needed. Please follow-up with her INVESTMENTS MANAGER regarding the ovarian cyst. If you notice worsening pain, change in bowel movements, fevers or chills, have recurrent vomiting, develop abnormal vaginal discharge or bleeding, you've any other new concerns, please return the emergency room. Problem Qualifiers Primary Impression: Abdominal pain Abdominal location: lower abdomen, unspecified Qualified Codes: R10.30 - Lower abdominal pain, unspecified Additional Impression: Ovarian cyst Laterality: left Qualified Codes: N83.202 - Unspecified ovarian cyst, left side
[2017-11-03] MEDS ORDERED: FENTANYL CITRATE INJ 50 MCG/1 ML 2 ML VIAL IV STA (16:36)
[2017-11-03] MEDS ORDERED: SODIUM CHLORIDE 0.9% 1000ML 1,000 ML IV STA (16:36)
[2017-11-03] MEDS ORDERED: ONDANSETRON INJ 2 MG/ML 2 ML VIAL IV STA (16:36)
[2017-11-03 17:27] LABS: INFLUENZA B ANTIGEN Neg for Influ B (NEG)
[2017-11-03 17:40] LABS: BASO % 0.1 %; BASO ABS # 0.01 K/uL (0-0.2); HEMOGLOBIN 14.2 g/dL (12.0-16.0); IG# 0.03 K/uL (0.00-0.02); LYMPH % 26.2 %; LYMPH ABS # 2.68 K/uL (1.2-3.4); MEAN CELL VOLUME 88.2 fL (80-100); MEAN CORPUSCULAR HEMOGLOBIN 29.8 pg (25-34); MEAN CORPUSCULAR HGB CONC 33.8 g/dl (32-36); MEAN PLATELET VOLUME 8.9 fL (7.4-10.4); MONO % 7.4 %; MONO ABS # 0.76 K/uL (0.11-0.59); NEUT ABS # 6.66 K/uL (1.4-6.5); PLATELET COUNT 296 K/uL (130-400); RED CELL DISTRIBUTION WIDTH CV 13.3 % (11.5-14.5); WHITE BLOOD COUNT 10.24 K/uL (4.8-10.8)
[2017-11-03 17:56] LABS: ALBUMIN 3.2 gm/dl (3.4-5.0); CALCIUM 9.2 mg/dl (8.5-10.1); CREATININE 0.76 mg/dl (0.60-1.20); POTASSIUM 3.5 mmol/L (3.5-5.1)
--- NOTE | 2017-11-03 17:58 | DIAGNOSTIC IMAGING REPORT ---
CHEST AND ABDOMEN 2 VIEWS HISTORY: Nausea. Generalized abdominal pain. COMPARISON: FINDINGS: The lungs are clear. The cardiomediastinal silhouette is within normal limits. The liver appears enlarged, unchanged. There is no pneumoperitoneum or pneumatosis. The bowel gas pattern is unremarkable. No evidence for bowel obstruction. No pathologic calcifications. IMPRESSION: No acute cardiopulmonary process. No evidence for bowel obstruction. Persistent hepatomegaly. Electronically signed by: Roni Singh M.D. 11/03/2017 5:57 PM Dictated Date/Time: 11/03/2017 5:54 PM
[2017-11-03 17:59] LABS: TOTAL PROTEIN 8.7 gm/dl (6.4-8.2)
[2017-11-03] MEDS ORDERED: ACETAMINOPHEN IV 100 ML IV STA (18:13)
[2017-11-03] MEDS ORDERED: SODIUM CHLORIDE 0.9% 500ML 500 ML IV STA (18:13)
[2017-11-03] MEDS ORDERED: HYDROmorphone INJ 0.5 MG/0.5 ML SYR IV STA (19:09)
[2017-11-03] MEDS ORDERED: DICYCLOMINE HCL 10 MG CAP PO ONE (19:15)
--- NOTE | 2017-11-03 20:30 | DIAGNOSTIC IMAGING REPORT ---
PELVIC ULTRASOUND, TRANSABDOMINAL AND TRANSVAGINAL HISTORY: lower abd pain, hx ovarian cysts COMPARISON: Pelvic ultrasound 02/18/2017. FINDINGS: Uterus: 10.0 x 4.6 x 4.3 cm. There are a few tiny nabothian cysts. Endometrial stripe: 9 mm in thickness. Right ovary: Only visualized transabdominally. Not well-visualized due to its high position and the adjacent bowel gas. However, this appears to be normal in size. Color flow was unable to be obtained due to the suboptimal visualization. Left ovary: Only visualized transabdominally. Normal in size and demonstrates normal color flow. This contains a 3.7 cm cyst. Miscellaneous:No pelvic free fluid. IMPRESSION: 1. Normal uterus. 2. A 3.7 cm left ovarian cyst. 2. The right ovary was not well visualized but appears to be normal in size. Electronically signed by: Roni Singh M.D. 11/03/2017 8:29 PM Dictated Date/Time: 11/03/2017 8:26 PM
[2017-11-03] MEDS ORDERED: MAGNESIUM SULFATE 1GM / D5W 1 GM BAG IV STA (20:35)
[2017-11-03] MEDS ORDERED: ONDANSETRON HOME PACK 4MG OD TAB PO ONE (21:00)
[2017-11-03] MEDS ORDERED: OXYCODONE/ACETAMINOPHEN 5-325 TAB PO ONE (21:00)
[2017-11-03] MEDS ORDERED: PERCOCET HOME PACK PO ONE (21:00)
[2017-11-03 22:23] VITALS: BP 140/85; PULSE 87; O2SAT 97
== END 2017-11-03 22:24 | disposition home or self-care (01) ==
LOC: C.EDB 16:01 → C.EDA 22:24
DX: R10.30 Lower abdominal pain, unspecified (principal); N83.202 Unspecified ovarian cyst, left side; K50.90 Crohn's disease, unspecified, without complications; Z90.49 Acquired absence of other specified parts of digestive tract; Z83.3 Family history of diabetes mellitus; Z82.49 Family history of ischemic heart disease and other diseases of the circulatory system; Z88.8 Allergy status to other drugs, medicaments and biological substances

== ENCOUNTER 2020-10-06 20:11 | Inpatient (IN) ==
[2020-10-06] MEDS ORDERED: PIPERACILLIN/TAZOBACTAM 4.5 GM/120 ML BAG IV STA (20:35)
[2020-10-06] MEDS ORDERED: DAPTOmycin 525 MG in SYRINGE 0 ML IV ONE (20:37)
[2020-10-06] MEDS ORDERED: ONDANSETRON INJ 2 MG/ML 2 ML VIAL IV STA (20:38)
[2020-10-06] MEDS ORDERED: HYDROmorphone INJ 0.5 MG/0.5 ML SYR IV STA ×2 (20:38→22:24)
[2020-10-06] MEDS ORDERED: SODIUM CHLORIDE 0.9% 1000ML 2,000 ML IV SCH (20:45)
[2020-10-06 21:11] LABS: Basophils # (auto) 0.02 K/uL (0-0.2); Basophils % (auto) 0.1 %; Eosinophils # (auto) 0.05 K/uL (0-0.5); Eosinophils % (auto) 0.3 %; Hematocrit (blood only) 34.5 % (37-47); Hemoglobin 11.5 g/dL (12.0-16.0); Immature Granulocytes # (auto) 0.03 K/uL (0.00-0.02); Immature Granulocytes % (auto) 0.2 %; Lymphocytes # (auto) 1.98 K/uL (1.2-3.4); Lymphocytes % (auto) 13.3 %; Mean Corpuscular Hemoglobin 28.9 pg (25-34); Mean Corpuscular Hgb Conc 33.3 g/dL (32-36); Mean Corpuscular Volume 86.7 fL (80-100); Mean Platelet Volume 8.8 fL (7.4-10.4); Monocytes # (auto) 1.22 K/uL (0.11-0.59); Monocytes % (auto) 8.2 %; Neutrophils # (auto) 11.61 K/uL (1.4-6.5); Neutrophils % (auto) 77.9 %; Platelet Count 342 K/uL (130-400); RDW Coefficient of Variation 13.7 % (11.5-14.5); RDW Standard Deviation 43.7 fL (36.4-46.3); Red Blood Count 3.98 M/uL (4.2-5.4); White Blood Count 14.91 K/uL (4.8-10.8)
[2020-10-06 21:32] LABS: Albumin Level 2.8 gm/dl (3.4-5.0); BUN Creatinine Ratio 9.4 (10-20); Calcium 9.3 mg/dl (8.5-10.1); Creatinine Clr Calc Pharmacy 142.8 ml/min; Est GFR (Non-African American) 99.2; Potassium 3.5 mmol/L (3.5-5.1)
[2020-10-06 21:35] LABS: Albumin Globulin Ratio 0.5 (0.9-2); Bilirubin,Total 0.5 mg/dl (0.2-1); Globulin 5.9 gm/dl (2.5-4.0); Total Protein 8.7 gm/dl (6.4-8.2)
--- NOTE | 2020-10-06 22:06 | Emergency Department Note ---
Impression & Plan Abdominal wall cellulitis, Ulcer of abdomen wall, Morbid obesity with BMI of 50.0-59.9, adult, Failure of outpatient treatment ED Provider Note NAME: JARRED ESPARZA AGE: 35 SEX: F ARRIVES VIA: Walk-In INFORMANT: Patient, ED PROVIDER(S): Michelle Harley MD CHIEF COMPLAINT: Abdominal wall infection, pain PLAN: Disposition: Admission Condition: Fair Referral: Hospitalist MEDICAL DECISION MAKING: This patient was evaluated and appeared to be in significant discomfort. Patient is noted to have a heart rate of 136 on the emergency doctor. Records from the emergency visit yesterday were reviewed. Patient's wound is suspicious for a Pseudomonas given the discolored drainage an d odor. Blood cultures were obtained. Patient was given IV Zosyn and IV daptomycin. She was hydrated with 2 L of IV normal saline solution. She was medicated with IV Dilaudid and Zofran for her discomfort. CT imaging of the pelvis was performed as there is a question of a now focal fluid collection in the left lower quadrant. Triage Nursing notes reviewed. Prior medical records reviewed Vital Signs: reviewed and remarkable for tachycardia, hypertension Differential diagnosis:Cellulitis, abscess, MRSA infection, DVT, necrotizing fasciitis, dermatitis, drug eruption, allergic reaction, as well as other pathologies. ER treatment provided: IV normal saline solution IV Dilaudid IV Zofran IV Zosyn IV daptomycin Diagnostics interpreted by me: ECG: ST at 117 bpm, Qtc 435 normal, no PVC, no PAC, normal ST segment. Cardiac Monitoring: An order for cardiac monitoring was placed and the patient is noted to be in a sinus tachycardia at a rate of 134 bpm. Laboratory studies: Leukocytosis with WBC of 14.9, lactate Imaging studies: XR chest 1V portable HISTORY: fever, tachycardia COMPARISON: Chest 11/03/2017. FINDINGS: The lungs are clear. Cardiac silhouette is normal in size. No pleural effusions. No pneumothorax. IMPRESSION: No acute process. ACT 112: Negative or not required by law. Electronically signed by: Roni Singh M.D. 10/07/2020 7:40 AM Dictated: 10/07/20 0739Transcribed: 10/07/2039 CT pelvis w/IV con only HISTORY: L abd wound, cellulitis, sepsis TECHNIQUE: Multiaxial CT images of the pelvis were performed following the intravenous administration of 119 cc of Optiray 320 contrast. COMPARISON STUDY: Abdomen and pelvis CT 10/06/2020. FINDINGS: There is again noted skin thickening and subcutaneous fat stranding along the left and anterior abdominal wall/pannus. There is also seen within the lower anterior pelvic wall. In the left lower quadrant pannus there is focal collection of gas and small amount of fluid within the thickened skin and subcutaneous soft tissues. This collection measures approximately 4.2 x 3.0 cm. This could represent a skin ulceration with underlying abscess and/or necrotizing fasciitis. There is left external iliac and inguinal lymphadenopathy. The bladder, uterus, and ovaries are within normal limits. Prior sigmoid anastomosis. No pelvic free fluid. The visualized loops of bowel s how no wall thickening or obstruction. No suspicious lytic or blastic osseous lesions within the pelvis. IMPRESSION: 1. Redemonstration of the skin thickening and subcutaneous fat stranding along t he left and anterior abdominal wall/pannus. There is also a focal 4.2 x 3.0 cm gas and fluid collection within the left lower quadrant thickened skin and subcutaneous soft tissues. This has slightly increased in size. This could represent a skin ulceration with underlying abscess and/or necrotizing fasciitis. 2. Left inguinal and external iliac lymphadenopathy is likely reactive. ACT 112: Negative or not required by law. Electronically signed by: Roni Singh M.D. 10/07/2020 7:28 AM Dictated: 10/07/20722Transcribed: 10/07/20722 Consultation(s): hospitalist HPI: 35/F arrives for evaluation of worsening abdominal redness and LLQ wound. She was seen 1 day ago in the ED, medicated with IV daptomycin, Iv zosyn and had a CT scan with clear fluid collection. Pt was ultimately d/c on keflex and bactrim, but fells worse and thinks the redness has spread. She denies high fevers, but feels chills and sweats. Admits to oozing from abd wound. ROS: See above HPI for pertinent positives & negatives. A total of 10 systems reviewed and were otherwise negative. PAST MEDICAL HISTORY:See Below PAST SURGICAL HISTORY:See Below FAMILY HISTORY:See Below SOCIAL HISTORY:See Below HOME MEDICATIONS:See Below ALLERGIES:See Below PHYSICAL EXAMINATION: Michelle Harley MD Past Med/Surg History Medical History Anxiety Crohns disease Hypertension Morbid obesity with BMI of 45.0-49.9, adult Surgical History History of colonoscopy History of esophagogastroduodenoscopy (EGD) History of partial colectomy 01/2014 90% removed @ [facility] [place] History of wisdom tooth extraction Family History Father Family history of diabetes mellitus Grandmother (Paternal) Family history of diabetes mellitus Other No family history of adverse response to anesthesia No pertinent family history Social History Smoking Status: Never smoker Second Hand Exposure: No; Hx Alcohol Use: Yes Alcohol type: wine Hx Substance Use: No Preferred Language: Angolan Communication Ability: Effective Visual Impairment: No Limitations Hearing Ability: Normal Hand Method Lasting Machine Operator Required: No Beliefs That Will Affect Care: None marital status: Current Living Situation: Family Current Living Situation Comment: Lives with and 8yr old son current occupational status: employed Feels Safe at Home: Yes Safety Concerns: Feels Safe At This Time Assistive Devices: None Allergies Allergies Allergy/AdvReac Type Severity Reaction Status Date / Time infliximab Allergy Severe SOB, FACE Verified 10/06/20 20:58 FLUSHING Home Meds Home Medications Medication Instructions Recorded Confirmed azathioprine 100 mg PO HS 03/14/19 10/06/20 clonazepam 0.5 mg PO DAILY PRN 03/14/19 10/06/20 dicyclomine 10 mg PO QID PRN 03/14/19 10/06/20 drospirenone-ethinyl estradiol 1 tab PO HS 03/14/19 10/06/20 [BARBARA (28)] sertraline 100 mg PO HS 03/14/19 10/06/20 lisinopril 10 mg PO HS 09/25/19 10/06/20 Previous Rx's Medication Instructions Recorded cephalexin [Keflex] 500 mg PO Q6H 10 Days #40 cap 10/06/20 docusate sodium [Colace] 100 mg PO BID #60 cap 10/06/20 oxycodone 5 mg PO Q6H PRN #14 tab 10/06/20 sennosides [Senokot] 8.6 mg PO HS #30 tab 10/06/20 sulfamethoxazole-trimethoprim 1 tab PO BID #20 tab 10/06/20 [Bactrim DS] Results & Data (ED) Vital Signs Vital Signs - 24 hr 10/06/20 20:15 10/06/20 20:36 10/06/20 20:54 Temperature 37.0 C Temperature Source Oral Pulse Rate 136 H 117 H 115 H Pulse Rate from SpO2 Sensor 117 H 115 H Respiratory Rate 24 20 20 Respiratory Effort / Characteristics Non-Labored Respiratory Depth Normal Blood Pressure 142/86 H 155/92 H Blood Pressure Mean 104 113 Pulse Oximetry 93 94 95 Oxygen Delivery Method Room Air Sepsis Recent Fever Within 48 Hours Yes Sepsis New/Unexplained Change in Mental Status No Sepsis Action Taken by Nursing No Action Required 10/06/20 21:00 10/06/20 21:15 10/06/20 21:30 Temperature Temperature Source Pulse Rate 119 H 117 H 108 H Pulse Rate from SpO2 Sensor 119 H 117 H 108 H Respiratory Rate 17 14 22 Respiratory Effort / Characteristics Respiratory Depth Blood Pressure Blood Pressure Mean Pulse Oximetry 96 95 95 Oxygen Delivery Method Sepsis Recent Fever Within 48 Hours Sepsis New/Unexplained Change in Mental Status Sepsis Action Taken by Nursing 10/06/20 21:45 Temperature Temperature Source Pulse Rate 122 H Pulse Rate from SpO2 Sensor 123 H Respiratory Rate 24 Respiratory Effort / Characteristics Respiratory Depth Blood Pressure Blood Pressure Mean Pulse Oximetry 96 Oxygen Delivery Method Sepsis Recent Fever Within 48 Hours Sepsis New/Unexplained Change in Mental Status Sepsis Action Taken by Intermediate Medications Current Medication List: was personally reviewed by me Laboratory Data Attestation: I reviewed the patient's lab results. Result diagrams: 10/08/20 06:37 10/08/20 06:37 Lab Results 10/06/20 10/06/20 10/06/20 Range/Units 21:00 21:00 21:00 WBC 14.91 H (4.8-10.8) K/uL RBC 3.98 L (4.2-5.4) M/uL Hgb 11.5 L (12.0-16.0) g/dL Hct 34.5 L (37-47) % MCV 86.7 (80-100) fL MCH 28.9 (25-34) pg MCHC 33.3 (32-36) g/dL RDW Std Deviation 43.7 (36.4-46.3) fL RDW Coeff of Johnathan 13.7 (11.5-14.5) % Plt Count 342 (130-400) K/uL MPV 8.8 (7.4-10.4) fL Immature Gran % (Auto) 0.2 % Neut % (Auto) 77.9 % Lymph % (Auto) 13.3 % Reynolds % (Auto) 8.2 % Eos % (Auto) 0.3 % Baso % (Auto) 0.1 % Neut # (Auto) 11.61 H (1.4-6.5) K/uL Lymph # (Auto) 1.98 (1.2-3.4) K/uL Reynolds # (Auto) 1.22 H (0.11-0.59) K/uL Eos # (Auto) 0.05 (0-0.5) K/uL Baso # (Auto) 0.02 (0-0.2) K/uL Immature Gran # (Auto) 0.03 H (0.00-0.02) K/uL Sodium 133 L (136-145) mmol/L Potassium 3.5 (3.5-5.1) mmol/L Chloride 101 (98-107) mmol/L Carbon Dioxide 22 (21-32) mmol/L Anion Gap 9.0 (3-11) BUN 7 (7-18) mg/dl Creatinine 0.78 (0.6-1.2) mg/dl Est Cr Clr Drug Dosing 142.8 ml/min Est GFR ( Amer) 115.0 Est GFR (Non-Af Amer) 99.2 BUN/Creatinine Ratio 9.4 L (10-20) Glucose 110 H (70-99) mg/dl Lactate (0.4-2.0) mmol/L Calcium 9.3 (8.5-10.1) mg/dl Total Bilirubin 0.5 (0.2-1) mg/dl AST 15 (15-37) U/L ALT 19 (12-78) U/L Alkaline Phosphatase 71 (45-117) U/L Total Protein 8.7 H (6.4-8.2) gm/dl Albumin 2.8 L (3.4-5.0) gm/dl Globulin 5.9 H (2.5-4.0) gm/dl Albumin/Globulin Ratio 0.5 L (0.9-2) Procalcitonin 0.07 (0-0.5) ng/ml COVID-19 Eval Order SARS-CoV-2, RNA, NAAT (NEGATIVE) 10/06/20 10/06/20 10/06/20 Range/Units 21:02 21:20 21:20 WBC (4.8-10.8) K/uL RBC (4.2-5.4) M/uL Hgb (12.0-16.0) g/dL Hct (37-47) % MCV (80-100) fL MCH (25-34) pg MCHC (32-36) g/dL RDW Std Deviation (36.4-46.3) fL RDW Coeff of Johnathan (11.5-14.5) % Plt Count (130-400) K/uL MPV (7.4-10.4) fL Immature Gran % (Auto) % Neut % (Auto) % Lymph % (Auto) % Reynolds % (Auto) % Eos % (Auto) % Baso % (Auto) % Neut # (Auto) (1.4-6.5) K/uL Lymph # (Auto) (1.2-3.4) K/uL Reynolds # (Auto) (0.11-0.59) K/uL Eos # (Auto) (0-0.5) K/uL Baso # (Auto) (0-0.2) K/uL Immature Gran # (Auto) (0.00-0.02) K/uL Sodium (136-145) mmol/L Potassium (3.5-5.1) mmol/L Chloride (98-107) mmol/L Carbon Dioxide (21-32) mmol/L Anion Gap (3-11) BUN (7-18) mg/dl Creatinine (0.6-1.2) mg/dl Est Cr Clr Drug Dosing ml/min Est GFR ( Amer) Est GFR (Non-Af Amer) BUN/Creatinine Ratio (10-20) Glucose (70-99) mg/dl Lactate 1.3 (0.4-2.0) mmol/L Calcium (8.5-10.1) mg/dl Total Bilirubin (0.2-1) mg/dl AST (15-37) U/L ALT (12-78) U/L Alkaline Phosphatase (45-117) U/L Total Protein (6.4-8.2) gm/dl Albumin (3.4-5.0) gm/dl Globulin (2.5-4.0) gm/dl Albumin/Globulin Ratio (0.9-2) Procalcitonin (0-0.5) ng/ml COVID-19 Eval Order Covid19 [facility]Now [facility] SARS-CoV-2, RNA, NAAT NEGATIVE (NEGATIVE) Administered Medications Acetaminophen (Acetaminophen 500 Mg Tab) 1,000 mg PO Q8 PARVIZ Stop: 11/07/20 17:59 Last Admin: 10/09/20 04:25 Dose: 1,000 mg Documented by: [id number] Admin: 10/08/20 17:53 Dose: 1,000 mg Documented by: [id number] Docusate Sodium (Docusate Sodium 100 Mg Cap) 100 mg PO BID PARVIZ Stop: 11/06/20 08:59 Last Admin: 10/09/20 07:48 Dose: Not Given Documented by: [id number] Admin: 10/08/20 20:42 Dose: Not Given Documented by: [id number] Admin: 10/08/20 08:36 Dose: Not Given Documented by: [id number] Admin: 10/07/20 20:31 Dose: Not Given Documented by: [id number] Admin: 10/07/20 09:47 Dose: Not Given Documented by: [id number] Hydromorphone HCl (Hydromorphone Inj 0.5 Mg/0.5 Ml Syr) 0.5 mg IV Q3H PRN PRN Reason: Pain Stop: 10/21/20 01:01 Last Admin: 10/09/20 09:39 Dose: 0.5 mg Documented by: [id number] Admin: 10/09/20 04:27 Dose: 0.5 mg Documented by: [id number] Admin: 10/08/20 09:48 Dose: 0.5 mg Documented by: [id number] Admin: 10/08/20 03:12 Dose: 0.5 mg Documented by: [id number] Admin: 10/07/20 05:56 Dose: 0.5 mg Documented by: [id number] Admin: 10/07/20 01:43 Dose: 0.5 mg Documented by: [id number] Hydromorphone HCl (Hydromorphone Inj 1 Mg/Ml Syringe) 1 mg IV Q3H PRN PRN Reason: Severe Pain Stop: 10/21/20 09:37 Last Admin: 10/07/20 22:11 Dose: 1 mg Documented by: [id number] Admin: 10/07/20 18:19 Dose: 1 mg Documented by: [id number] Admin: 10/07/20 13:34 Dose: 1 mg Documented by: [id number] Piperacillin Sod/Tazobactam (Sod 4.5 gm/ Dextrose) 120 mls @ 30 mls/hr IV Q8H PARVIZ; Protocol Stop: 10/14/20 01:59 Last Admin: 10/09/20 09:39 Dose: 30 mls/hr Documented by: [id number] Infusion: 10/09/20 04:32 Dose: 0 mls/hr Documented by: [id number] Admin: 10/09/20 00:20 Dose: 30 mls/hr Documented by: [id number] Infusion: 10/08/20 21:56 Dose: 0 mls/hr Documented by: [id number] Admin: 10/08/20 17:53 Dose: 30 mls/hr Documented by: [id number] Infusion: 10/08/20 14:08 Dose: 0 mls/hr Documented by: [id number] Admin: 10/08/20 09:45 Dose: 30 mls/hr Documented by: [id number] Infusion: 10/08/20 05:48 Dose: 0 mls/hr Documented by: [id number] Admin: 10/08/20 01:46 Dose: 30 mls/hr Documented by: [id number] Infusion: 10/07/20 22:03 Dose: 0 mls/hr Documented by: [id number] Admin: 10/07/20 18:00 Dose: 30 mls/hr Documented by: [id number] Infusion: 10/07/20 13:46 Dose: 0 mls/hr Documented by: [id number] Admin: 10/07/20 09:46 Dose: 30 mls/hr Documented by: [id number] Infusion: 10/07/20 05:55 Dose: 0 mls/hr Documented by: [id number] Admin: 10/07/20 01:35 Dose: 30 mls/hr Documented by: [id number] Daptomycin 525 mg/ Syringe 10.5 mls @ 5.25 mls/min IV Q24H PARVIZ; Protocol Stop: 10/12/20 23:01 Last Admin: 10/08/20 22:52 Dose: 5.25 mls/min Documented by: [id number] Admin: 10/07/20 23:19 Dose: 5.25 mls/min Documented by: [id number] Ketorolac Tromethamine (Ketorolac 30 Mg/Ml Vial) 30 mg IV Q6H PRN PRN Reason: Pain Stop: 10/13/20 13:49 Last Admin: 10/08/20 22:56 Dose: 30 mg Documented by: [id number] Admin: 10/08/20 14:10 Dose: 30 mg Documented by: [id number] Lisinopril (Lisinopril 10 Mg Tab) 10 mg PO [facility] Stop: 11/06/20 20:59 Last Admin: 10/08/20 20:40 Dose: 10 mg Documented by: [id number] Ondansetron HCl (Ondansetron Inj 2 Mg/Ml 2 Ml Vial) 4 mg IV Q6H PRN PRN Reason: Nausea Stop: 11/06/20 01:01 Last Admin: 10/08/20 03:12 Dose: 4 mg Documented by: [id number] Oxycodone HCl (Oxycodone Hcl Ir 5 Mg Tab (Immediate Release)) 5 mg PO Q6H PRN PRN Reason: Pain Stop: 10/21/20 01:15 Last Admin: 10/07/20 10:35 Dose: 5 mg Documented by: [id number] Sennosides (Senna 8.6 Mg Tab) 8.6 mg PO [facility] Stop: 11/06/20 20:59 Last Admin: 10/08/20 20:42 Dose: Not Given Documented by: [id number] Admin: 10/07/20 20:31 Dose: Not Given Documented by: [id number] Sertraline HCl (Sertraline Hcl 100 Mg Tablet) 100 mg PO [facility] Stop: 11/06/20 20:59 Last Admin: 10/08/20 20:40 Dose: 100 mg Documented by: [id number] Admin: 10/07/20 20:31 Dose: 100 mg Documented by: [id number] Tramadol HCl (Tramadol Hcl 50 Mg Tablet) 50 mg PO Q4H PRN PRN Reason: severe breakthrough pain Stop: 11/07/20 14:58 Last Admin: 10/09/20 00:20 Dose: 50 mg Documented by: [id number] Discontinued Medications Enoxaparin Sodium (Enoxaparin Inj 40 Mg/0.4 Ml Syr) 40 mg SQ NOW ONE Stop: 10/07/20 19:31 Last Admin: 10/07/20 20:29 Dose: 40 mg Documented by: [id number] Hydromorphone HCl (Hydromorphone Inj 0.5 Mg/0.5 Ml Syr) 0.5 mg IV NOW STA Stop: 10/06/20 20:39 Last Admin: 10/06/20 21:14 Dose: 0.5 mg Documented by: [id number] Hydromorphone HCl (Hydromorphone Inj 0.5 Mg/0.5 Ml Syr) 0.5 mg IV NOW STA Stop: 10/06/20 22:25 Last Admin: 10/06/20 22:32 Dose: 0.5 mg Documented by: [id number] Hydromorphone HCl (Hydromorphone Inj 1 Mg/Ml Syringe) 1 mg IV NOW STA Stop: 10/06/20 23:11 Last Admin: 10/06/20 23:21 Dose: 1 mg Documented by: [id number] Sodium Chloride (Nss 1000ml) 2,000 mls @ 999 mls/hr IV .Q2H1M PARVIZ Stop: 10/06/20 22:45 Last Infusion: 10/06/20 23:23 Dose: 0 mls/hr Documented by: [id number] Admin: 10/06/20 21:14 Dose: 999 mls/hr Documented by: [id number] Piperacillin Sod/Tazobactam Sod (Zosyn) 4.5 gm in 120 mls @ 200 mls/hr IV NOW STA Stop: 10/06/20 21:10 Last Infusion: 10/06/20 22:33 Dose: 0 mls/hr Documented by: [id number] Admin: 10/06/20 21:14 Dose: 200 mls/hr Documented by: [id number] Daptomycin 525 mg/ Syringe 10.5 mls @ 5.25 mls/min IV NOW ONE; Protocol Stop: 10/06/20 20:38 Last Admin: 10/06/20 23:02 Dose: 5.25 mls/min Documented by: [id number] Sodium Chloride (Nss 1000ml) 1,000 mls @ 125 mls/hr IV .Q8H PARVIZ Stop: 11/06/20 01:01 Last Infusion: 10/08/20 14:08 Dose: 0 mls/hr Documented by: [id number] Admin: 10/08/20 09:44 Dose: 125 mls/hr Documented by: [id number] Infusion: 10/08/20 09:44 Dose: 125 mls/hr Documented by: [id number] Admin: 10/08/20 01:45 Dose: 125 mls/hr Documented by: [id number] Infusion: 10/08/20 01:45 Dose: 125 mls/hr Documented by: [id number] Admin: 10/07/20 17:57 Dose: 125 mls/hr Documented by: [id number] Infusion: 10/07/20 17:46 Dose: 125 mls/hr Documented by: [id number] Admin: 10/07/20 09:46 Dose: 125 mls/hr Documented by: [id number] Infusion: 10/07/20 09:45 Dose: 125 mls/hr Documented by: [id number] Admin: 10/07/20 01:35 Dose: 125 mls/hr Documented by: [id number] Ioversol (Optiray 320 125ml) 119 ml IV ONCE ONE Stop: 10/06/20 22:43 Last Admin: 10/06/20 22:42 Dose: 119 ml Documented by: [id number] Ondansetron HCl (Ondansetron Inj 2 Mg/Ml 2 Ml Vial) 4 mg IV NOW STA Stop: 10/06/20 20:39 Last Admin: 10/06/20 21:14 Dose: 4 mg Documented by: [id number] Promethazine HCl (Promethazine Hcl 25 Mg Tab) 25 mg PO NOW ONE Stop: 10/08/20 08:11 Last Admin: 10/08/20 08:31 Dose: 25 mg Documented by: [id number] Discharge Plan Visit Data Chief Complaint: Skin Problem Stated Complaint: CELLULITIS ED Provider: Michelle Harley Discharge Problem: Abdominal wall cellulitis, Ulcer of abdomen wall, Morbid obesity with BMI of 50.0-59.9, adult, Failure of outpatient treatment Patient Disposition: Admitted As Inpatient Discharge Instructions Interventions: ED Discharge Assessment Last Done: 10/07/20 00:24 Discharge Problem: Ulcer of abdomen wall Qualifiers: Non-pressure ulcer stage: with fat layer exposed Qualified Code(s): L98.492 - 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
[2020-10-06] MEDS ORDERED: OPTIRAY 320 125ml IV ONE (22:42)
[2020-10-06] MEDS ORDERED: HYDROmorphone INJ 1 MG/ML SYRINGE IV STA (23:10)
[2020-10-07] MEDS ORDERED: clonazePAM 0.5 MG TAB PO PRN (01:02)
[2020-10-07] MEDS ORDERED: NITROGLYCERIN SL 0.4 MG/TAB TAB SL PRN (01:02)
[2020-10-07] MEDS ORDERED: ACETAMINOPHEN 325 MG TAB PO PRN (01:02)
[2020-10-07] MEDS ORDERED: POLYETHYLENE (MIRALAX) 17 GM PACK PO PRN (01:02)
[2020-10-07] MEDS ORDERED: DICYCLOMINE HCL 10 MG CAP PO PRN (01:02)
[2020-10-07] MEDS ORDERED: PIPERACILL/TAZOBAC CONSULT ACTIVE PRN (01:02)
[2020-10-07] MEDS ORDERED: ONDANSETRON INJ 2 MG/ML 2 ML VIAL IV PRN (01:02)
--- NOTE | 2020-10-07 01:13 | History and Physical Report ---
DATE OF ADMISSION: 10/06/2020 CHIEF COMPLAINT: Abdominal wall cellulitis and abscess. HISTORY OF PRESENT ILLNESS: A 35-year-old female with past medical history significant for prediabetes, Crohn's disease of colon, morbid obesity, history of dermatitis, history of herpes simplex gingival stomatitis, anxiety, presents with abdominal wall infection. The patient says since last Saturday, she is having abdominal erythema and pain, it got worse today and also she was in the ER yesterday and given IV antibiotics, daptomycin and Zosyn and CAT scan showed no drainable collection and she was discharged on Bactrim and Keflex, but the pain got worse and she came to the ER and she was tachycardic, heart rate in 130s when she came in. Her white count is 14.9, which is down from 15.2 yesterday. SARS-CoV-2 negative. Again, pelvis CT was done and preliminary report shows soft tissue induration with fluid and air collection in the region of the skin marker, now measuring 3.6 x 5.1 x 2.1 cm. In the ER when they tried to get wound cultures, the abscess started draining. Patient says the pain was very severe when she came in but now the pain is under control. HAd low-grade fevers at home. Denies any diarrhea or constipation, no blood in the stools. Normal bladder movements. Denies any chest pain, no shortness of breath, no cough, no headache, no blurred vision, no earache, no runny nose, no sore throat, no nausea, no vomiting. Appetite is not that great the last few days. Currently resting comfortably and hemodynamically stable. ALLERGIES: REMICADE. PAST MEDICAL HISTORY: As mentioned above. PAST SURGICAL HISTORY: Multiple colonoscopies, laparoscopic colectomy partial with anastomosis, adenoidectomy, enterectomy, small bowel resection, upper endoscopy. MEDICATIONS: The patient is on amiodarone 100 mg at bedtime, Keflex 500 mg p.o. q. 6 hours, clonazepam 0.5 mg p.o. daily p.r.n., dicyclomine 10 mg p.o. q.i.d. p.r.n., Colace 100 mg p.o. b.i.d.,BARBARA 28 1 tablet p.o. at bedtime, lisinopril 10 mg p.o. at bedtime, oxycodone 5 mg p.o. q. 6 hours p.r.n., Senokot 8.6 mg p.o. at bedtime, sertraline 100 mg at bedtime, Bactrim 1 tablet p.o. b.i.d. FAMILY HISTORY: Significant for mother had carcinoid tumor in the stomach and thyroid disorder. Father had diabetes, paternal grandmother had diabetes, maternal grandmother had lung disorder. SOCIAL HISTORY: , lives with family. No smoking, no alcohol, no drug use. REVIEW OF SYMPTOMS: As per HPI. Rest of review of systems negative. PHYSICAL EXAMINATION: GENERAL: The patient is morbidly obese, not in acute distress. VITAL SIGNS: Temperature 37, pulse when she came in was like 130s, currently 104, respiratory rate 21, blood pressure 124/69, oxygen 95% on room air. HEENT: Pupils equal, round, reactive to light. Oral mucosa dry. NECK: No JVD, no neck masses seen. CARDIOVASCULAR: S1, S2, regular rate and rhythm, no murmur, no gallop. RESPIRATORY SYSTEM: Normal AP diameter. No accessory muscle use. No wheezing, no crackles. ABDOMEN: Soft, bowel sounds sluggish. Abdominal wall inflammation with erythema seen over the pannus and mild drainage seen in the left lower pannus. CENTRAL NERVOUS SYSTEM: Nonfocal. EXTREMITIES: No edema, no erythema. LABORATORY DATA: WBC 14.9, hemoglobin 11.5, hematocrit 34.5, platelets 342. Sodium 133, potassium 3.5, chloride 101, bicarbonate 22, BUN 7, creatinine 0.7, serum glucose 110, lactate 1.3, calcium 9.3, total bilirubin 0.5, AST 15, ALT 19, alkaline phosphatase 71. Procalcitonin 0.07. SARS-CoV-[address], re-demonstration of soft tissue induration with fluid and air collection at the region of the skin marker now measuring approximately 3.6 x 5.1 x 2.1 cm. Differential considerations include abscess and the recent procedure, infection with gas forming organism not excluded. Additional findings similar to the preceding study. Chest x-ray, no acute findings. EKG: Sinus tachycardia at a rate of 117, no significant change was found. ASSESSMENT AND PLAN: This 35-year-old female who presents with abdominal wall cellulitis and abscess. 1. Abdominal wall cellulitis and abscess in the pannus. Failed outpatient treatment. The abscess was draining spontaneously in the ER. The patient is on daptomycin, Zosyn, which we will continue and consult surgery in a.m. Keep n.p.o. after midnight. IV fluids, normal saline 125 mL per hour. Lactic acid is normal. Possible early sepsis with tachycardia, elevated white count, closely monitor. 2. History of Crohn's disease, status post colectomy and in remission for about 6 years as per patient. The patient is on Imuran, which we will hold for now. 3. Morbid obesity, needs counseling. 4. Hypertension. Continue lisinopril with holding parameters. 5. Depression. Continue Zoloft. 6. Chronic pain, continue oxycodone p.r.n. 7. Prediabetes, currently n.p.o. We will follow HbA1c levels. 8. Deep venous thrombosis prophylaxis, SCDs for now. 8. Disposition: Closely monitor in the med tele. Level 1 full code. Expect discharge home and follow with family doctor. RICKY
[2020-10-07] MEDS ORDERED: INFLUENZA VIRUS QUAD VACCINE 0.5 ML SYR IM ONE (01:33)
[2020-10-07] MEDS ORDERED: INFLUENZA ADMINISTRATION CHARGE ONE (01:33)
[2020-10-07] MEDS: SODIUM CHLORIDE 0.9% 1000ML 1,000 ML IV SCH ×3 (01:35→17:57)
[2020-10-07] MEDS: PIPERACILLIN/TAZOBACTAM 4.5 GM in DEXTROSE 5% 100 ML IV SCH ×3 (01:35→18:00)
[2020-10-07] MEDS: HYDROmorphone INJ 0.5 MG/0.5 ML SYR IV PRN ×2 (01:43→05:56)
[2020-10-07 06:08] LABS: Basophils # (auto) 0.02 K/uL (0-0.2); Basophils % (auto) 0.2 %; Eosinophils # (auto) 0.08 K/uL (0-0.5); Eosinophils % (auto) 0.6 %; Hemoglobin 10.2 g/dL (12.0-16.0); Immature Granulocytes # (auto) 0.02 K/uL (0.00-0.02); Immature Granulocytes % (auto) 0.2 %; Lymphocytes # (auto) 2.54 K/uL (1.2-3.4); Lymphocytes % (auto) 20.5 %; Mean Corpuscular Hemoglobin 27.9 pg (25-34); Mean Corpuscular Hgb Conc 31.9 g/dL (32-36); Mean Corpuscular Volume 87.7 fL (80-100); Monocytes # (auto) 0.85 K/uL (0.11-0.59); Monocytes % (auto) 6.9 %; Neutrophils # (auto) 8.88 K/uL (1.4-6.5); Neutrophils % (auto) 71.6 %; Platelet Count 291 K/uL (130-400); RDW Coefficient of Variation 13.7 % (11.5-14.5); Red Blood Count 3.65 M/uL (4.2-5.4); White Blood Count 12.39 K/uL (4.8-10.8)
[2020-10-07 06:21] LABS: Estimated Average Glucose 131 mg/dl; Hemoglobin A1C 6.2 % (4.5-5.6)
[2020-10-07 06:32] LABS: BUN Creatinine Ratio 8.8 (10-20); Calcium 8.2 mg/dl (8.5-10.1); Creatinine Clr Calc Pharmacy 184.6 ml/min; Est GFR (African American) 137.1; Est GFR (Non-African American) 118.3; Magnesium 2.1 mg/dl (1.8-2.4); Potassium 3.7 mmol/L (3.5-5.1)
--- NOTE | 2020-10-07 07:29 | CT Scan Report ---
CT pelvis w/IV con only HISTORY: L abd wound, cellulitis, sepsis TECHNIQUE: Multiaxial CT images of the pelvis were performed following the intravenous administration of 119 cc of Optiray 320 contrast. COMPARISON STUDY: Abdomen and pelvis CT 10/06/2020. FINDINGS: There is again noted skin thickening and subcutaneous fat stranding along the left and ante rior abdominal wall/pannus. There is also seen within the lower anterior pelvic wall. In the left low er quadrant pannus there is focal collection of gas and small amount of fluid within the thickened sk in and subcutaneous soft tissues. This collection measures approximately 4.2 x 3.0 cm. This could rep resent a skin ulceration with underlying abscess and/or necrotizing fasciitis. There is left external iliac and inguinal lymphadenopathy. The bladder, uterus, and ovaries are within normal limits. Prior sigmoid anastomosis. No pelvic free fluid. The visualized loops of bowel show no wall thickening or obstruction. No suspicious lytic or blastic osseous lesions within the pelvis. IMPRESSION: 1. Redemonstration of the skin thickening and subcutaneous fat stranding along the left and anterior abdominal wall/pannus. There is also a focal 4.2 x 3.0 cm gas and fluid collection within the left lo wer quadrant thickened skin and subcutaneous soft tissues. This has slightly increased in size. This could represent a skin ulceration with underlying abscess and/or necrotizing fasciitis. 2. Left inguinal and external iliac lymphadenopathy is likely reactive. ACT 112: Negative or not required by law. Electronically signed by: Roni Singh M.D. 10/07/2020 7:28 AM
--- NOTE | 2020-10-07 07:41 | XRay Report ---
XR chest 1V portable HISTORY: fever, tachycardia COMPARISON: Chest 11/03/2017. FINDINGS: The lungs are clear. Cardiac silhouette is normal in size. No pleural effusions. No pneumot horax. IMPRESSION: No acute process. ACT 112: Negative or not required by law. Electronically signed by: Roni Singh M.D. 10/07/2020 7:40 AM
[2020-10-07] MEDS: DOCUSATE SODIUM 100 MG CAP PO SCH ×2 (09:47→20:31)
--- NOTE | 2020-10-07 10:11 | Surgery Consultation ---
Date of Consultation October 07, 2020 Assessment & Plan (1) Abdominal wall abscess: 35 year-old morbidly obese female with history of crohn's disease currently in remission who presented to ED last evening with increasing abdominal pain, chills, low grade fever, and drainage from abdominal wall. She was seen in ED prior with CT scan showing cellulitis and phlegmon in LLQ abdominal wall but no fluid collection at the time. Was sent home with antibiotics. No prior history of skin/soft tissue infections. Repeat CT of pelvis showing cellulitis of the LLQ abdominal wall pannus with significant subcutaneous stranding and a gas and fluid filled collection measuring 4.0 x 3.2 cm. Superficial wound culture showing gram + cocci and gram - bacilli however. Currently on IV Dapto and Zosyn. Leukocytosis improved to 12.39K from 15k. Lactic acid wnl. Plan: Given patients body habitus and large pannus with significant induration as well as ulcer at skin level with necrosis will schedule patient for I&D of abdominal wall abscess in OR with Dr. Alanis tomorrow morning. Continue IV Diluadid and Percocet prn pain. 1 mg IV Dilaudid added prn severe pain May have diet today and NPO after midnight Continue IV dapto and Zosyn, awaiting wound cultures Continue current medical management (2) Abdominal wall cellulitis: (3) Morbid obesity with BMI of 50.0-59.9, adult: Discussed with Dr. Alanis who is to evaluate patient later today. History of Present Illness Reason for Consultation: Abdominal wall abscess/cellulitis Requesting Physician: Jan Robles MD Attending Physician: Faith Livingston DO History of Present Illness Mayuri is a 35 year-old morbidly obese female with history of Crohn's disease in remission who presented to ED initially yesterday with abdominal wall redness and pain. She had CT scan which showed cellulitis and phlegmon with no drainable fluid collection and was sent home with oral antibiotics. She presented again last night to ED due to increasing pain and drainage from the abdominal wall. She also had low grade fever and chills. Associated nausea. No prior history of soft tissue/skin abscesses, MRSA infections. States started off as a cyst but then progressively worsened. ED work-up included labs which showed leukocytosis of 12K which was improved from prior at 15K. She was tachycardic with HR in 110's. Blood cultures obtained. superficial wound culture obtained. CT of pelvis with IV contrast no showing LLQ abdominal cellulitis with gas and fluid containing collection measuring 4.0 x 3.2 cm. Allergies Allergy/AdvReac Type Severity Reaction Status Date / Time infliximab Allergy Severe SOB, FACE Verified 10/06/20 20:58 FLUSHING Home Medications Medication Instructions Recorded Confirmed Type azathioprine 100 mg PO HS 03/14/19 10/06/20 History clonazepam 0.5 mg PO DAILY PRN 03/14/19 10/06/20 History dicyclomine 10 mg PO QID PRN 03/14/19 10/06/20 History drospirenone-ethinyl estradiol 1 tab PO HS 03/14/19 10/06/20 History [BARBARA (28)] sertraline 100 mg PO HS 03/14/19 10/06/20 History lisinopril 10 mg PO HS 09/25/19 10/06/20 History cephalexin [Keflex] 500 mg PO Q6H 10 Days #40 cap 10/06/20 10/06/20 Rx docusate sodium [Colace] 100 mg PO BID #60 cap 10/06/20 10/06/20 Rx oxycodone 5 mg PO Q6H PRN #14 tab 10/06/20 10/06/20 Rx sennosides [Senokot] 8.6 mg PO HS #30 tab 10/06/20 10/06/20 Rx sulfamethoxazole-trimethoprim 1 tab PO BID #20 tab 10/06/20 10/06/20 Rx [Bactrim DS] Patient History Medical History Anxiety Crohns disease Hypertension Morbid obesity with BMI of 45.0-49.9, adult Surgical History History of colonoscopy History of esophagogastroduodenoscopy (EGD) [place] of [place] [facility] [place] of wisdom [place] extraction Family History Father Family history of diabetes mellitus Grandmother (Paternal) Family history of diabetes mellitus Other No family history of adverse response to anesthesia No pertinent family history Social History Smoking Status: Never smoker Second Hand Exposure: No; Hx Alcohol Use: Yes Alcohol type: wine Hx Substance Use: No Preferred Language: [place] Communication Ability: Effective Visual Impairment: No Limitations Hearing Ability: Normal Director Equipment Required: No Beliefs That Will Affect Care: None Current Living Situation: Family Current Living Situation Comment: Lives with and 8yr old son current occupational status: employed Feels Safe at Home: Yes Safety Concerns: Feels Safe At This Time Assistive Devices: None Review of Systems Review of Systems: All systems reviewed & are unremarkable except as noted in HPI & below Physical Exam Constitutional: + morbidly obese; no acute distress and not ill appearing Respiratory: normal respiratory effort; no respiratory distress Gastrointestinal (Abdomen): Inspection/Auscultation: + abdominal wall ecchymosis, + abdominal edema and + significant pannus Percussion/Palpation: + abdomen tender Pannus with significant erythema and induration of left lower side extending medially and to the right pannus. There is a superficial ulcer of the left pannus with necrosis and skin level with fluctuance at site of ulceration. No opening but there is significant odor and some drainage on dressing. Tenderness to palpation. Skin: no rashes, warm and dry Psychiatric: Orientation: alert, oriented x 3 and cooperative Results & Data ([facility]) Vital Signs (Past 12 Hours) Vital Signs Temp Pulse Pulse Resp BP BP Pulse Ox 10/07/20 07:38 36.6 C 96 H 16 125/73 96 10/07/20 07:23 87 10/07/20 01:16 36.9 C 105 H 20 121/82 94 10/07/20 01:07 105 H 10/07/20 00:00 93 H 21 142/79 H 97 10/06/20 23:30 105 H 24 133/85 98 10/06/20 23:04 104 H 21 124/69 10/06/20 23:02 117 H 20 10/06/20 22:30 106 H 20 125/76 95 10/06/20 22:15 109 H 20 95 Laboratory Results 10/07/20 10/07/20 10/07/20 Range/Units 05:27 05:27 05:27 WBC 12.39 H (4.8-10.8) K/uL RBC 3.65 L (4.2-5.4) M/uL Hgb 10.2 L (12.0-16.0) g/dL Hct 32.0 L (37-47) % MCV 87.7 (80-100) fL MCH 27.9 (25-34) pg MCHC 31.9 L (32-36) g/dL RDW Std Deviation 44.0 (36.4-46.3) fL RDW Coeff of Johnathan 13.7 (11.5-14.5) % Plt Count 291 (130-400) K/uL MPV 9.0 (7.4-10.4) fL Immature Gran % (Auto) 0.2 % Neut % (Auto) 71.6 % Lymph % (Auto) 20.5 % Wayne % (Auto) 6.9 % Eos % (Auto) 0.6 % Baso % (Auto) 0.2 % Neut # (Auto) 8.88 H (1.4-6.5) K/uL Lymph # (Auto) 2.54 (1.2-3.4) K/uL Wayne # (Auto) 0.85 H (0.11-0.59) K/uL Eos # (Auto) 0.08 (0-0.5) K/uL Baso # (Auto) 0.02 (0-0.2) K/uL Immature Gran # (Auto) 0.02 (0.00-0.02) K/uL Sodium 137 (136-145) mmol/L Potassium 3.7 (3.5-5.1) mmol/L Chloride 106 (98-107) mmol/L Carbon Dioxide 25 (21-32) mmol/L Anion Gap 6.0 (3-11) BUN 5 L (7-18) mg/dl Creatinine 0.61 (0.6-1.2) mg/dl Est Cr Clr Drug Dosing 184.6 ml/min Est GFR ( Amer) 137.1 Est GFR (Non-Af Amer) 118.3 BUN/Creatinine Ratio 8.8 L (10-20) Glucose 112 H (70-99) mg/dl Estimat Average Glucose 131 mg/dl Hemoglobin A1c 6.2 H (4.5-5.6) % Lactate (0.4-2.0) mmol/L Calcium 8.2 L (8.5-10.1) mg/dl Magnesium 2.1 (1.8-2.4) mg/dl Total Bilirubin (0.2-1) mg/dl AST (15-37) U/L ALT (12-78) U/L Alkaline Phosphatase (45-117) U/L Total Protein (6.4-8.2) gm/dl Albumin (3.4-5.0) gm/dl Globulin (2.5-4.0) gm/dl Albumin/Globulin Ratio (0.9-2) Procalcitonin (0-0.5) ng/ml COVID-19 Eval Order SARS-CoV-2, RNA, NAAT (NEGATIVE) 10/06/20 10/06/20 10/06/20 Range/Units 21:20 21:20 21:02 WBC (4.8-10.8) K/uL RBC (4.2-5.4) M/uL Hgb (12.0-16.0) g/dL Hct (37-47) % MCV (80-100) fL MCH (25-34) pg MCHC (32-36) g/dL RDW Std Deviation (36.4-46.3) fL RDW Coeff of Johnathan (11.5-14.5) % Plt Count (130-400) K/uL MPV (7.4-10.4) fL Immature Gran % (Auto) % Neut % (Auto) % Lymph % (Auto) % Wayne % (Auto) % Eos % (Auto) % Baso % (Auto) % Neut # (Auto) (1.4-6.5) K/uL Lymph # (Auto) (1.2-3.4) K/uL Wayne # (Auto) (0.11-0.59) K/uL Eos # (Auto) (0-0.5) K/uL Baso # (Auto) (0-0.2) K/uL Immature Gran # (Auto) (0.00-0.02) K/uL Sodium (136-145) mmol/L Potassium (3.5-5.1) mmol/L Chloride (98-107) mmol/L Carbon Dioxide (21-32) mmol/L Anion Gap (3-11) BUN (7-18) mg/dl Creatinine (0.6-1.2) mg/dl Est Cr Clr Drug Dosing ml/min Est GFR ( Amer) Est GFR (Non-Af Amer) BUN/Creatinine Ratio (10-20) Glucose (70-99) mg/dl Estimat Average Glucose mg/dl Hemoglobin A1c (4.5-5.6) % Lactate 1.3 (0.4-2.0) mmol/L Calcium (8.5-10.1) mg/dl Magnesium (1.8-2.4) mg/dl Total Bilirubin (0.2-1) mg/dl AST (15-37) U/L ALT (12-78) U/L Alkaline Phosphatase (45-117) U/L Total Protein (6.4-8.2) gm/dl Albumin (3.4-5.0) gm/dl Globulin (2.5-4.0) gm/dl Albumin/Globulin Ratio (0.9-2) Procalcitonin (0-0.5) ng/ml COVID-19 Eval Order Covid19 IDNow [facility] SARS-CoV-2, RNA, NAAT NEGATIVE (NEGATIVE) 10/06/20 10/06/20 10/06/20 Range/Units 21:00 21:00 21:00 WBC 14.91 H (4.8-10.8) K/uL RBC 3.98 L (4.2-5.4) M/uL Hgb 11.5 L (12.0-16.0) g/dL Hct 34.5 L (37-47) % MCV 86.7 (80-100) fL MCH 28.9 (25-34) pg MCHC 33.3 (32-36) g/dL RDW Std Deviation 43.7 (36.4-46.3) fL RDW Coeff of Johnathan 13.7 (11.5-14.5) % Plt Count 342 (130-400) K/uL MPV 8.8 (7.4-10.4) fL Immature Gran % (Auto) 0.2 % Neut % (Auto) 77.9 % Lymph % (Auto) 13.3 % Wayne % (Auto) 8.2 % Eos % (Auto) 0.3 % Baso % (Auto) 0.1 % Neut # (Auto) 11.61 H (1.4-6.5) K/uL Lymph # (Auto) 1.98 (1.2-3.4) K/uL Wayne # (Auto) 1.22 H (0.11-0.59) K/uL Eos # (Auto) 0.05 (0-0.5) K/uL Baso # (Auto) 0.02 (0-0.2) K/uL Immature Gran # (Auto) 0.03 H (0.00-0.02) K/uL Sodium 133 L (136-145) mmol/L Potassium 3.5 (3.5-5.1) mmol/L Chloride 101 (98-107) mmol/L Carbon Dioxide 22 (21-32) mmol/L Anion Gap 9.0 (3-11) BUN 7 (7-18) mg/dl Creatinine 0.78 (0.6-1.2) mg/dl Est Cr Clr Drug Dosing 142.8 ml/min Est GFR ( Amer) 115.0 Est GFR (Non-Af Amer) 99.2 BUN/Creatinine Ratio 9.4 L (10-20) Glucose 110 H (70-99) mg/dl Estimat Average Glucose mg/dl Hemoglobin A1c (4.5-5.6) % Lactate (0.4-2.0) mmol/L Calcium 9.3 (8.5-10.1) mg/dl Magnesium (1.8-2.4) mg/dl Total Bilirubin 0.5 (0.2-1) mg/dl AST 15 (15-37) U/L ALT 19 (12-78) U/L Alkaline Phosphatase 71 (45-117) U/L Total Protein 8.7 H (6.4-8.2) gm/dl Albumin 2.8 L (3.4-5.0) gm/dl Globulin 5.9 H (2.5-4.0) gm/dl Albumin/Globulin Ratio 0.5 L (0.9-2) Procalcitonin 0.07 (0-0.5) ng/ml COVID-19 Eval Order SARS-CoV-2, RNA, NAAT (NEGATIVE) Microbiology 10/06/20 20:40 Gram Stain - Final Abdomen, Left Lower Quadrant Diagnostic Findings CT pelvis w/IV con only HISTORY: L abd wound, cellulitis, sepsis TECHNIQUE: Multiaxial CT images of the pelvis were performed following the intravenous administration of 119 cc of Optiray 320 contrast. COMPARISON STUDY: Abdomen and pelvis CT 10/06/2020. FINDINGS: There is again noted skin thickening and subcutaneous fat stranding along the left and anterior abdominal wall/pannus. There is also seen within the lower anterior pelvic wall. In the left lower quadrant pannus there is focal collection of gas and small amount of fluid within the thickened skin and subcutaneous soft tissues. This collection measures approximately 4.2 x 3.0 cm. This could represent a skin ulceration with underlying abscess and/or necrotizing fasciitis. There is left external iliac and inguinal lymphadenopathy. The bladder, uterus, and ovaries are within normal limits. Prior sigmoid anastomosis. No pelvic free fluid. The visualized loops of bowel show no wall thickening or obstruction. No suspicious lytic or blastic osseous lesions within the pelvis. IMPRESSION: 1. Redemonstration of the skin thickening and subcutaneous fat stranding along the left and anterior abdominal wall/pannus. There is also a focal 4.2 x 3.0 cm gas and fluid collection within the left lower quadrant thickened skin and subcutaneous soft tissues. This has slightly increased in size. This could represent a skin ulceration with underlying abscess and/or necrotizing fasciitis. 2. Left inguinal and external iliac lymphadenopathy is likely reactive.
[2020-10-07] MEDS: oxyCODONE HCL IR 5 MG TAB (IMMEDIATE RELEASE) PO PRN (10:35)
[2020-10-07] MEDS: HYDROmorphone INJ 1 MG/ML SYRINGE IV PRN ×3 (13:34→22:11)
--- NOTE | 2020-10-07 15:44 | Hospitalist Progress Note ---
Date of Service October 07, 2020 Assessment & Plan (1) Sepsis: Resuscitated overnight-continues on broad spectrum antibiotics. Definitive source control with surgical I&D in the operating room planned for tomorrow by surgery. (2) Abdominal wall abscess: I&D in am. Surface wound culture pending from ER visit recently. Cont broad spectrum abx pending culture results and clinical improvement. (3) Abdominal wall cellulitis: Abx as above. (4) Crohns disease: chronic, stable on Imuran (azathioprine) which is currently held in the setting of sepsis. Will restart when infection is definitively treated. (5) Hypertension: BP is low normal and may fall in post operative setting. Hold home lisinopril at this time. (6) Anxiety: Cont daily sertraline with PRN clonazepam per home regimen. (7) Ulcer of abdomen wall: (8) Morbid obesity with BMI of 50.0-59.9, adult: (9) DVT prophylaxis: Lovenox x 1 now, then will plan to resume 40mg q12h once cleared by surgery Full Code Dispo-pending clinical improvement. Faith Livingston DO [facility] Hospitalist Admission and Anticipated Discharge Date Admission Date: October 06, 2020 Subjective 35 yo F with skin abscess that is worse since ER evaluation two days ago. She presented with worsening of pain despite antibiotic therapy. 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 with last colonoscopy reported 1 year ago She is maintained on Imuran Review of Systems Review of Systems: All systems reviewed & are unremarkable except as noted in Subjective Physical Exam Physical Exam: CONSTITUTIONAL: obese, vitals as above, generally well- appearing EYES: normal conjunctivae, no scleral icterus ENT: external ear and nose normal, MMM RESPIRATORY: clear to auscultation bilaterally, no crackles, rales or wheezes, normal respiratory effort CARDIOVASCULAR: regular rate and rhythm, S1 and 2 heard without murmurs, gallops or rubs, no JVD, no peripheral edema GASTROINTESTINAL: multiple skin folds with eschar appearing lesion covering fluctuant area on LLQ abdomen superficially surrounded by area of erythema. Otherwise abdomen is soft and not distended or guarded. MUSCULOSKELETAL: strength 5/5 throughout, head is normocephalic and atraumatic, neck supple, normal palpation of chest wall without tenderness SKIN: warm and dry, lesion as above. NEUROLOGIC: CN 2-12 grossly intact, normal speech, no gross focal deficits. PSYCHIATRIC: alert cooperative and oriented to person, place and time. Results & Data Results & Data ([facility]) Vital Signs (Past 12 Hours) Vital Signs Temp Pulse Pulse Resp BP Pulse Ox 10/07/20 15:23 36.7 C 96 H 16 102/68 96 10/07/20 07:38 36.6 C 96 H 16 125/73 96 10/07/20 07:23 87 Laboratory Results Short CBC 10/06/20 10/07/20 Range/Units 21:00 05:27 WBC 14.91 H 12.39 H (4.8-10.8) K/uL Hgb 11.5 L 10.2 L (12.0-16.0) g/dL Hct 34.5 L 32.0 L (37-47) % Plt Count 342 291 (130-400) K/uL BMP 10/06/20 10/07/20 21:00 05:27 Sodium 133 L 137 Potassium 3.5 3.7 Chloride 101 106 Carbon Dioxide 22 25 BUN 7 5 L Creatinine 0.78 0.61 Glucose 110 H 112 H Calcium 9.3 8.2 L Liver Function 10/06/20 Range/Units 21:00 Total Bilirubin 0.5 (0.2-1) mg/dl AST 15 (15-37) U/L ALT 19 (12-78) U/L Alkaline Phosphatase 71 (45-117) U/L Albumin 2.8 L (3.4-5.0) gm/dl Urine 10/07/20 Range/Units 18:25 Urine Color Yellow Urine Appearance Cloudy A (Clear) Urine pH 5.5 (4.5-7.5) Ur Specific [place] 1.020 (1.000-1.030) Urine Protein Negative (Negative) Urine Glucose (UA) Negative (Negative) Medications Administered Current Inpatient Medications Acetaminophen (Acetaminophen 325 Mg Tab) 650 mg PO Q4H PRN PRN Reason: Pain or Fever Stop: 11/06/20 01:01 Clonazepam (Clonazepam 0.5 Mg Tab) 0.5 mg PO DAILY PRN PRN Reason: Anxiety Stop: 11/06/20 01:01 Dicyclomine HCl (Dicyclomine Hcl 10 Mg Cap) 10 mg PO QID PRN PRN Reason: Cramps Stop: 11/06/20 01:01 Docusate Sodium (Docusate Sodium 100 Mg Cap) 100 mg PO BID [facility] Stop: 11/06/20 08:59 Last Admin: 10/07/20 09:47 Dose: Not Given Documented by: Hydromorphone HCl (Hydromorphone Inj 0.5 Mg/0.5 Ml Syr) 0.5 mg IV Q3H PRN PRN Reason: Pain Stop: 10/21/20 01:01 Last Admin: 10/07/20 05:56 Dose: 0.5 mg Documented by: Hydromorphone HCl (Hydromorphone Inj 1 Mg/Ml Syringe) 1 mg IV Q3H PRN PRN Reason: Severe Pain Stop: 10/21/20 09:37 Last Admin: 10/07/20 18:19 Dose: 1 mg Documented by: Sodium Chloride (Nss 1000ml) 1,000 mls @ 125 mls/hr IV .Q8H PARVIZ Stop: 11/06/20 01:01 Last Admin: 10/07/20 17:57 Dose: 125 mls/hr Documented by: Piperacillin Sod/Tazobactam (Sod 4.5 gm/ Dextrose) 120 mls @ 30 mls/hr IV Q8H [facility]; Protocol Stop: 10/14/20 01:59 Last Admin: 10/07/20 18:00 Dose: 30 mls/hr Documented by: Daptomycin 525 mg/ Syringe 10.5 mls @ 5.25 mls/min IV Q24H [facility]; Protocol Stop: 10/12/20 23:01 Lisinopril (Lisinopril 10 Mg Tab) 10 mg PO HS [facility] Stop: 11/06/20 20:59 Miscellaneous Information (Daptomycin Consult Active) 1 ea N/A UD PRN PRN Reason: Consult Stop: 11/05/20 20:36 Miscellaneous Information (Piperacill/Tazobac Consult Active) 1 ea N/A UD PRN PRN Reason: Consult Stop: 11/06/20 01:01 Nitroglycerin (Nitroglycerin Sl 0.4 Mg/Tab Tab) 0.4 mg SL UD PRN PRN Reason: Chest Pain Stop: 11/06/20 01:01 Ondansetron HCl (Ondansetron Inj 2 Mg/Ml 2 Ml Vial) 4 mg IV Q6H PRN PRN Reason: Nausea Stop: 11/06/20 01:01 Oxycodone HCl (Oxycodone Hcl Ir 5 Mg Tab (Immediate Release)) 5 mg PO Q6H PRN PRN Reason: Pain Stop: 10/21/20 01:15 Last Admin: 10/07/20 10:35 Dose: 5 mg Documented by: Polyethylene Glycol (Polyethylene (Miralax) 17 Gm Pack) 17 gm PO DAILY PRN PRN Reason: Constipation Stop: 11/06/20 01:01 Sennosides (Senna 8.6 Mg Tab) 8.6 mg PO HS PARVIZ Stop: 11/06/20 20:59 Sertraline HCl (Sertraline Hcl 100 Mg Tablet) 100 mg PO [facility] Stop: 11/06/20 20:59 (1) Ulcer of abdomen wall Non-pressure ulcer stage: with fat layer exposed Qualified Code(s): L98.492 - 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
[2020-10-07 18:52] LABS: Appearance Urine Cloudy (Clear); Bilirubin Urine Negative (Negative); Blood Urine 1+ (Negative); Color Urine Yellow; Epithelial Cell Urine Auto >30 /lpf (0-5); Glucose Urine UA Negative (Negative); Ketones Urine Trace (Negative); Leukocyte Esterase Urine 1+ (Negative); Nitrite Urine Negative (Negative); Protein Urine Negative (Negative); Urobilinogen Urine Negative (Negative); pH Urine 5.5 (4.5-7.5)
[2020-10-07 19:02] LABS: Bacteria Urine Automated 1+ (Negative)
[2020-10-07] MEDS ORDERED: ENOXAPARIN INJ 40 MG/0.4 ML SYR SQ ONE (19:30)
[2020-10-07] MEDS: SERTRALINE HCL 100 MG TABLET PO SCH (20:31)
[2020-10-07] MEDS: SENNA 8.6 MG TAB PO SCH (20:31)
[2020-10-07] MEDS: DAPTOmycin 525 MG in SYRINGE 0 ML IV SCH (23:19)
[2020-10-08] MEDS: SODIUM CHLORIDE 0.9% 1000ML 1,000 ML IV SCH ×2 (01:45→09:44)
[2020-10-08] MEDS: PIPERACILLIN/TAZOBACTAM 4.5 GM in DEXTROSE 5% 100 ML IV SCH ×3 (01:46→17:53)
[2020-10-08] MEDS: HYDROmorphone INJ 0.5 MG/0.5 ML SYR IV PRN ×2 (03:12→09:48)
[2020-10-08 06:59] LABS: Basophils # (auto) 0.01 K/uL (0-0.2); Basophils % (auto) 0.1 %; Eosinophils # (auto) 0.12 K/uL (0-0.5); Eosinophils % (auto) 1.2 %; Hematocrit (blood only) 33.6 % (37-47); Hemoglobin 10.8 g/dL (12.0-16.0); Immature Granulocytes # (auto) 0.02 K/uL (0.00-0.02); Immature Granulocytes % (auto) 0.2 %; Lymphocytes # (auto) 2.07 K/uL (1.2-3.4); Lymphocytes % (auto) 20.8 %; Mean Corpuscular Hemoglobin 28.3 pg (25-34); Mean Corpuscular Hgb Conc 32.1 g/dL (32-36); Mean Platelet Volume 8.9 fL (7.4-10.4); Monocytes # (auto) 0.61 K/uL (0.11-0.59); Monocytes % (auto) 6.1 %; Neutrophils # (auto) 7.11 K/uL (1.4-6.5); Neutrophils % (auto) 71.6 %; Platelet Count 286 K/uL (130-400); RDW Coefficient of Variation 13.8 % (11.5-14.5); RDW Standard Deviation 44.6 fL (36.4-46.3); Red Blood Count 3.82 M/uL (4.2-5.4); White Blood Count 9.94 K/uL (4.8-10.8)
--- NOTE | 2020-10-08 07:03 | Electrocardiogram Report ---
Test Reason : Blood Pressure : / mmHG Vent. Rate : 117 BPM Atrial Rate : 117 BPM P-R Int : 164 ms QRS Dur : 078 ms QT Int : 312 ms P-R-T Axes : 061 -01 026 degrees QTc Int : 435 ms Sinus tachycardia Otherwise normal ECG When compared with ECG of 14-DEC-2015 17:08, No significant change was found Confirmed by Lars Meza ([id number]) on 10/08/2020 7:03:14 AM Referred By: REFERRED SELF Confirmed By:Lars Meza
[2020-10-08 07:30] LABS: BUN Creatinine Ratio 12.5 (10-20); Calcium 8.7 mg/dl (8.5-10.1); Creatinine Clr Calc Pharmacy 199.5 ml/min; Est GFR (African American) 140.2; Potassium 3.7 mmol/L (3.5-5.1)
[2020-10-08] MEDS ORDERED: fentaNYL citrate 100 MCG/2 ML VIAL ONE ×2 (07:35→11:20)
[2020-10-08] MEDS ORDERED: PROPOFOL IV EMULSION 10 MG/ML 20 ML VIAL IV ONE ×2 (07:35→11:08)
[2020-10-08] MEDS ORDERED: ONDANSETRON INJ 2 MG/ML 2 ML VIAL ONE ×2 (07:35→11:09)
[2020-10-08] MEDS ORDERED: MIDAZOLAM HCL 1 MG/ML 2ML VIAL ONE (07:35)
[2020-10-08] MEDS ORDERED: LIDOCAINE HCL 2% 2 ML VIAL/AMP(20MG/ML) INFIL ONE (07:35)
--- NOTE | 2020-10-08 07:35 | Surgery Progress Note ---
Date of Service October 08, 2020 Assessment & Plan (1) Abdominal wall abscess: (2) Cellulitis: (3) Ulcer of abdomen wall: will need debridement and I&D to OR this AM Admission and Anticipated Discharge Date Admission Date: October 06, 2020 Subjective no complaints Review of Systems Constitutional: no fever and no chills Cardiovascular: no chest pain Gastrointestinal: no abdominal pain, no nausea and no vomiting Integumentary: + rash, + skin ulcer and + erythema Physical Exam Constitutional: well developed, well nourished and + obese Neck: trachea midline Respiratory: normal respiratory effort, lungs clear to auscultation Cardiovascular: RRR, no murmur, no edema Skin: + wound (full thickness necroisi abdominal wall with abscess) Results & Data ([facility]) Vital Signs (Past 12 Hours) Vital Signs Temp Pulse Pulse Resp BP Pulse Ox 10/08/20 07:25 83 10/08/20 00:00 108 H 10/07/20 23:00 36.9 C 104 H 20 113/77 95 (1) Cellulitis Site of cellulitis: unspecified site Qualified Code(s): L03.90 - Cellulitis, unspecified (2) Ulcer of abdomen wall Non-pressure ulcer stage: with fat layer exposed Qualified Code(s): L98.492 - 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
[2020-10-08] MEDS ORDERED: ePHEDrine sulfate 50 MG/ML AMP IV PRN (08:09)
[2020-10-08] MEDS ORDERED: ATROPINE SULFATE 0.1 MG/ML 10ML SYR IV PRN (08:09)
[2020-10-08] MEDS ORDERED: ONDANSETRON INJ 2 MG/ML 2 ML VIAL IV PRN (08:09)
[2020-10-08] MEDS ORDERED: HYDROmorphone INJ 1 MG/ML SYRINGE IV PRN (08:09)
[2020-10-08] MEDS ORDERED: fentaNYL citrate 100 MCG/2 ML VIAL IV PRN (08:09)
--- NOTE | 2020-10-08 08:09 | Anesthesiology Consultation ---
Date of Service October 08, 2020 Assessment & Plan (1) Encounter for pre-operative examination: Chart Review Chart Review: Acceptable Risk for Surgery and Patient NOT seen in Pre Admission Testing History Surgery Operation Date: 10/08/20 08:50 Proposed Procedures p Incision and Drainage Abdominal Wall Abscess - Asher Alanis MD Height/Weight Height: 5 ft 4 in Weight: 145.15 kg Allergies Allergy/AdvReac Type Severity Reaction Status Date / Time infliximab Allergy Severe SOB, FACE Verified 10/06/20 20:58 FLUSHING Medications Home Medications Medication Instructions Recorded Confirmed Last Taken azathioprine 100 mg PO HS 03/14/19 10/06/20 10/05/20 clonazepam 0.5 mg PO DAILY PRN 03/14/19 10/06/20 10/01/19 08:00 dicyclomine 10 mg PO QID PRN 03/14/19 10/06/20 10/01/19 21:00 drospirenone-ethinyl estradiol 1 tab PO HS 03/14/19 10/06/20 10/05/20 [BARBARA (28)] sertraline 100 mg PO HS 03/14/19 10/06/20 10/05/20 lisinopril 10 mg PO HS 09/25/19 10/06/20 10/05/20 cephalexin [Keflex] 500 mg PO Q6H 10 Days #40 cap 10/06/20 10/06/20 10/06/20 17:30 docusate sodium [Colace] 100 mg PO BID #60 cap 10/06/20 10/06/20 Unknown oxycodone 5 mg PO Q6H PRN #14 tab 10/06/20 10/06/20 Unknown sennosides [Senokot] 8.6 mg PO HS #30 tab 10/06/20 10/06/20 Unknown sulfamethoxazole-trimethoprim 1 tab PO BID #20 tab 10/06/20 10/06/20 10/06/20 17:30 [Bactrim DS] Active Medications Generic Name Dose Route Start Last Admin Trade Name Freq PRN Reason Stop Dose Admin Docusate Sodium 100 mg 10/07/20 09:00 10/07/20 20:31 Docusate Sodium 100 Mg Cap PO 11/06/20 08:59 Not Given BID [facility] Hydromorphone HCl 0.5 mg 10/07/20 01:02 10/08/20 03:12 Hydromorphone Inj 0.5 Mg/0.5 Ml Syr IV 10/21/20 01:01 0.5 mg Q3H PRN Administration Pain Hydromorphone HCl 1 mg 10/07/20 09:38 10/07/20 22:11 Hydromorphone Inj 1 Mg/Ml Syringe IV 10/21/20 09:37 1 mg Q3H PRN Administration Severe Pain Sodium Chloride 1,000 mls @ 125 mls/hr 10/07/20 01:02 10/08/20 01:45 Nss 1000ml IV 11/06/20 01:01 125 mls/hr .Q8H [facility] Administration Piperacillin Sod/Tazobactam 120 mls @ 30 mls/hr 10/07/20 02:00 10/08/20 05:48 Sod 4.5 gm/ Dextrose IV 10/14/20 01:59 Infused Q8H [facility] Infusion Protocol Daptomycin 525 mg/ Syringe 10.5 mls @ 5.25 mls/min 10/07/20 23:00 10/07/20 23:19 IV 10/12/20 23:01 5.25 mls/min Q24H [facility] Administration Protocol Ondansetron HCl 4 mg 10/07/20 01:02 10/08/20 03:12 Ondansetron Inj 2 Mg/Ml 2 Ml Vial IV 11/06/20 01:01 4 mg Q6H PRN Administration Nausea Oxycodone HCl 5 mg 10/07/20 01:16 10/07/20 10:35 Oxycodone Hcl Ir 5 Mg Tab (Immediate Release) PO 10/21/20 01:15 5 mg Q6H PRN Administration Pain Sennosides 8.6 mg 10/07/20 21:00 10/07/20 20:31 Senna 8.6 Mg Tab PO 11/06/20 20:59 Not Given HS [facility] Sertraline HCl 100 mg 10/07/20 21:00 10/07/20 20:31 Sertraline Hcl 100 Mg Tablet PO 11/06/20 20:59 100 mg HS [facility] Administration NPO Date Last Intake of Fluids: 10/07/20 Time Last Intake of Fluids: 23:59 Date Last Intake of Solids: 01/22/21 Time Last Intake of Solids: 21:00 Past Medical History Medical History Anxiety Crohns disease Hypertension Morbid obesity with BMI of 45.0-49.9, adult Past Family History Family History Father Family history of diabetes mellitus Grandmother (Paternal) Family history of diabetes mellitus Other No family history of adverse response to anesthesia No pertinent family history Past Surgical History Surgical History History of colonoscopy History of esophagogastroduodenoscopy (EGD) History of partial co[place]omy [place] [facility] [place] of [place] extraction Social History Smoking Status: Never smoker Hx Alcohol Use: Yes Alcohol type: wine alcohol intake frequency: holidays/special occasions only Hx Substance Use: No substance use type: does not use Physical Exam Vital Signs Last Vital Signs Temp 36.7 C 10/08/20 07:49 Pulse 86 10/08/20 07:49 Resp 16 10/08/20 07:49 BP 130/85 10/08/20 07:49 Pulse Ox 97 10/08/20 07:49 Testing Laboratory Results 10/08/20 06:37 10/08/20 06:37 Hemoglobin A1c 6.2 % (4.5-5.6) H 10/07/20 05:27 Urine Color Yellow 10/07/20 18:25 Urine Appearance Cloudy (Clear) A 10/07/20 18:25 Urine pH 5.5 (4.5-7.5) 10/07/20 18:25 Ur Specific [place] 1.020 (1.000-1.030) 10/07/20 18:25 Urine Protein Negative (Negative) 10/07/20 18:25 Urine Glucose (UA) Negative (Negative) 10/07/20 18:25 Urine Ketones Trace (Negative) H 10/07/20 18:25 Urine Nitrite Negative (Negative) 10/07/20 18:25 Ur Leukocyte Esterase 1+ (Negative) H 10/07/20 18:25 Urine WBC (Auto) 10-30 /hpf (0-5) H 10/07/20 18:25 Urine RBC (Auto) 5-10 /hpf (0-4) H 10/07/20 18:25 U Hyaline Cast (Auto) 1-5 /lpf (0-5) 10/07/20 18:25 U Epithel Cells (Auto) >30 /lpf (0-5) H 10/07/20 18:25 Urine Bacteria (Auto) 1+ (Negative) H 10/07/20 18:25 10/06/20 21:00 Aerobic Blood Culture - Preliminary Blood No growth in Aerobic bottle after 24 hours. Anaerobic Blood Culture - Preliminary No growth in Anaerobic bottle after 24 hours. 10/06/20 21:00 Aerobic Blood Culture - Preliminary Blood No growth in Aerobic bottle after 24 hours. Anaerobic Blood Culture - Preliminary No growth in Anaerobic bottle after 24 hours. 10/06/20 20:40 Gram Stain - Final Abdomen, Left Lower Quadrant Wound Culture - Preliminary Pin-point growth present, reincubating.
[2020-10-08] MEDS ORDERED: PROMETHAZINE HCL 25 MG TAB PO ONE (08:10)
[2020-10-08] MEDS: DOCUSATE SODIUM 100 MG CAP PO SCH ×3 (08:36→20:42)
[2020-10-08 08:39] LABS: Pregnancy Test, Urine Negative (Negative)
[2020-10-08] MEDS ORDERED: DexMEDEtomidine HCL IV 100 MCG/ML VIAL ONE (10:03)
[2020-10-08] MEDS ORDERED: ACETAMINOPHEN 1000 MG/100 ML IV IV ONE (10:41)
[2020-10-08] MEDS ORDERED: SCOPOLAMINE 1.5 MG TDSY TD ONE (10:49)
[2020-10-08] MEDS ORDERED: SUCCINYLCHOLINE CHLORIDE 20 MG/ML 10 ML VIAL IV ONE (11:08)
[2020-10-08] MEDS ORDERED: DEXAMETHASONE SOD INJ 4 MG/ML VIAL ONE (11:08)
[2020-10-08] MEDS ORDERED: ROCURONIUM BROMIDE 10 MG/ML 5 ML VIAL IV ONE (11:08)
--- NOTE | 2020-10-08 11:29 | Post Operative Brief Note ---
Immediate Post Op Note v1 Date of Surgery October 08, 2020 Pre & Post Diagnosis Operation Date: 10/08/20 08:50 Pre-Op Diagnosis: Abdominal Wall Abscess with Full Thickness Abscess Post-Op Diagnosis: Abdominal Wall Abscess with Full Thickness Abscess I identified the patient and participated in the time-out.: Yes Procedure Operation Date: 10/08/20 08:50 Actual Procedures p Incision and Drainage of Abdominal Wall Abscess with Full Thickness Debridement(Left) - Asher Alanis MD Surgeon Asher Alanis MD [employer] none Estimated Blood Loss 15 Findings Consistent with Post-Op Diagnosis
--- NOTE | 2020-10-08 12:06 | Operative Report (OR) ---
DATE OF OPERATION: 10/08/2020 PREOPERATIVE DIAGNOSES: 1. Left-sided abdominal wall abscess. 2. Full thickness skin and subcutaneous necrotic tissue. POSTOPERATIVE DIAGNOSES: 1. Left-sided abdominal wall abscess. 2. Full thickness skin and subcutaneous necrotic tissue. PROCEDURE PERFORMED: 1. I and D of deep abdominal wall abscess. 2. Debridement of skin and subcutaneous tissue of left abdominal wall. SURGEON: Asher Alanis MD. ANESTHESIA: General. ESTIMATED BLOOD LOSS: 20 mL. DRAINS: None. COMPLICATIONS: None. SPECIMENS: Full thickness necrosis sent for pathologic evaluation. INDICATION FOR PROCEDURE: This is a 35-year-old morbidly obese white female who presented initially with some cellulitis that developed into an abscess in her left abdominal wall. She also has full thickness necrosis of her skin and deep tissues. We will plan on debriding this and doing an I and D in the operating room. DESCRIPTION OF PROCEDURE: The patient was taken to the OR and underwent excellent general anesthesia. Her left abdomen was prepped and draped in normal sterile fashion. Once this was done, tangential debridement was done of the skin including epidermis, dermis, and subcutaneous tissues. This was taken down to good viable tissue. Once this was done, the wound was probed and there was an abscess pocket, which was drained. A finger probed down through any deep loculations and all of the purulent material was drained. Cultures were taken and the skin was sent for pathologic evaluation. Cautery was used to try and stop some of the bleeding. This was done well. The wound was then irrigated out and packed with a dry gauze. A sterile dressing was applied. The patient tolerated the procedure well with no complications, sent to postop recovery for a period of observation, and will be sent to her room for further care. I attest to the content of the Intraoperative Record and any orders documented therein. Any exception s are noted below.
--- NOTE | 2020-10-08 13:12 | Anesthesiology Progress Note ---
Date of Service October 08, 2020 Anesthesia Post Procedure Vital Signs Vital Signs: Temp Pulse Pulse Pulse Resp BP Pulse Ox 10/08/20 12:40 36.7 C 93 H 22 158/88 H 94 10/08/20 12:30 36.7 C 91 H 24 152/88 H 94 10/08/20 12:20 93 H 26 H 162/87 H 93 10/08/20 12:10 91 H 20 147/88 H 93 10/08/20 12:00 93 H 28 H 158/88 H 92 10/08/20 11:54 36.7 C 101 H 20 160/98 H 95 10/08/20 07:49 36.7 C 86 16 130/85 97 10/08/20 07:25 83 10/08/20 00:00 108 H 10/07/20 23:00 36.9 C 104 H 20 113/77 95 10/07/20 18:00 101 H 10/07/20 15:23 36.7 C 96 H 16 102/68 96 Pain Intensity Left Lower Abdomen: Pain Intensity: 0 Transfer of Care Handoff Completed per policy Notes Mental Status: alert / awake / arousable and participated in evaluation Patient Amnestic to Procedure: Yes Nausea / Vomiting: adequately controlled Pain: adequately controlled Airway Patency, RR, SpO2: stable & adequate BP & HR: stable & adequate Hydration State: stable & adequate Anesthetic Complications: no major complications apparent and Pt Satisfied with anesthetic care Notes: The patient did well in recovery with no complaints. She will be transferred to the floor with continuous pulse oximetry for closer monitoring.
[2020-10-08] MEDS: KETOROLAC 30 MG/ML VIAL IV PRN ×2 (14:10→22:56)
--- NOTE | 2020-10-08 14:51 | Hospitalist Progress Note ---
Date of Service October 08, 2020 Assessment & Plan (1) Sepsis: Resuscitated. Continues on broad spectrum antibiotics pending culture results. She is s/p I&D today. (2) Abdominal wall abscess: plan as above. Had some post-operative respiratory issues in the PACU which have now resolved. Scheduled Tylenol ordered to help minimize the ask for narcotic pain meds. Toradol also PRN but minimize NSAIDs in setting of IBD. Tramadol PRN first then dilaudid last choice only for severe breakthrough pain that cannot be controlled with other agents. Patient is agreeable to this plan. (3) Abdominal wall cellulitis: appears resolved since I&D-this may have been more related to the pressure of the abscess as opposed to an actual skin infection. Wound was not closely evaluated under the current surgical site dressing. (4) Crohns disease: chronic, stable on Imuran (azathioprine) which is currently held in the setting of sepsis. Will restart when infection is definitively treated. Minimize NSAID use. (5) Hypertension: Lisinopril held, but BP post operatively is up slightly. Will restart now. (6) Anxiety: Cont daily sertraline with PRN clonazepam per home regimen. (7) Morbid obesity with BMI of 50.0-59.9, adult: (8) DVT prophylaxis: Lovenox Full Code Dispo- home pending clinical improvement. Faith Livingston DO [facility] Hospitalist Admission and Anticipated Discharge Date Admission Date: October 06, 2020 Subjective 35 yo F presented with sepsis 2/2 abdominal wall abscess she went to the OR for I&D this morning and in PACU had some post-operative respiratory insufficiency which quickly resolved, but was thought to be secondary to excessive narcotic use. This was recommended to be restricted today and then minimized as much as possible I discussed the thresholds with the patient regarding when she is asking for pain meds, and the expectation that we won't get her pain to zero. She verbalized understanding She reports a pins and needles feeling and a pressure in her RLQ presently She otherwise has no symptoms. Review of Systems Review of Systems: All systems reviewed & are unremarkable except as noted in Subjective Physical Exam Physical Exam: CONSTITUTIONAL: obese, vitals as above, generally well- appearing EYES: normal conjunctivae, no scleral icterus ENT: external ear and nose normal, MMM RESPIRATORY: clear to auscultation bilaterally, no crackles, rales or wheezes, normal respiratory effort CARDIOVASCULAR: regular rate and rhythm, S1 and 2 heard without murmurs, gallops or rubs, no JVD, no peripheral edema GASTROINTESTINAL: multiple skin folds with surgical incision in LLQ abdomen covered with dressing that is c/d/i. Otherwise abdomen is soft and not distended or guarded. MUSCULOSKELETAL: strength 5/5 throughout, head is normocephalic and atraumatic, neck supple, normal palpation of chest wall without tenderness SKIN: warm and dry, lesion as above. NEUROLOGIC: CN 2-12 grossly intact, normal speech, no gross focal deficits. PSYCHIATRIC: alert cooperative and oriented to person, place and time. Results & Data Results & Data ([facility]) Vital Signs (Past 12 Hours) Vital Signs Temp Pulse Pulse Pulse Resp BP Pulse Ox 10/08/20 14:04 36.8 C 83 20 143/79 H 95 10/08/20 13:27 87 10/08/20 13:25 36.7 C 85 18 136/79 95 10/08/20 13:24 10/08/20 13:00 37.4 C 96 H 16 133/88 94 10/08/20 12:40 36.7 C 93 H 22 158/88 H 94 10/08/20 12:30 36.7 C 91 H 24 152/88 H 94 10/08/20 12:20 93 H 26 H 162/87 H 93 10/08/20 12:10 91 H 20 147/88 H 93 10/08/20 12:00 93 H 28 H 158/88 H 92 10/08/20 11:54 36.7 C 101 H 20 160/98 H 95 10/08/20 07:49 36.7 C 86 16 130/85 97 10/08/20 07:25 83 Pulse Ox 10/08/20 14:04 10/08/20 13:27 10/08/20 13:25 10/08/20 13:24 94 10/08/20 13:00 10/08/20 12:40 10/08/20 12:30 10/08/20 12:20 10/08/20 12:10 10/08/20 12:00 10/08/20 11:54 10/08/20 07:49 10/08/20 07:25 Laboratory Results Short CBC 10/08/20 Range/Units 06:37 WBC 9.94 (4.8-10.8) K/uL Hgb 10.8 L (12.0-16.0) g/dL Hct 33.6 L (37-47) % Plt Count 286 (130-400) K/uL BMP 10/08/20 06:37 Sodium 137 Potassium 3.7 Chloride 108 H Carbon Dioxide 24 BUN 7 Creatinine 0.57 L Glucose 118 H Calcium 8.7 Urine 10/07/20 Range/Units 18:25 Urine Color Yellow Urine Appearance Cloudy A (Clear) Urine pH 5.5 (4.5-7.5) Ur Specific [place] 1.020 (1.000-1.030) Urine Protein Negative (Negative) Urine Glucose (UA) Negative (Negative) Medications Administered Current Inpatient Medications Acetaminophen (Acetaminophen 325 Mg Tab) 650 mg PO Q4H PRN PRN Reason: Pain or Fever Stop: 11/06/20 01:01 Clonazepam (Clonazepam 0.5 Mg Tab) 0.5 mg PO DAILY PRN PRN Reason: Anxiety Stop: 11/06/20 01:01 Dicyclomine HCl (Dicyclomine Hcl 10 Mg Cap) 10 mg PO QID PRN PRN Reason: Cramps Stop: 11/06/20 01:01 Docusate Sodium (Docusate Sodium 100 Mg Cap) 100 mg PO BID [facility] Stop: 11/06/20 08:59 Last Admin: 10/08/20 08:36 Dose: Not Given Documented by: Hydromorphone HCl (Hydromorphone Inj 0.5 Mg/0.5 Ml Syr) 0.5 mg IV Q3H PRN PRN Reason: Pain Stop: 10/21/20 01:01 Last Admin: 10/08/20 09:48 Dose: 0.5 mg Documented by: Hydromorphone HCl (Hydromorphone Inj 1 Mg/Ml Syringe) 1 mg IV Q3H PRN PRN Reason: Severe Pain Stop: 10/21/20 09:37 Last Admin: 10/07/20 22:11 Dose: 1 mg Documented by: Piperacillin Sod/Tazobactam (Sod 4.5 gm/ Dextrose) 120 mls @ 30 mls/hr IV Q8H [facility]; Protocol Stop: 10/14/20 01:59 Last Infusion: 10/08/20 14:08 Dose: Infused Documented by: Daptomycin 525 mg/ Syringe 10.5 mls @ 5.25 mls/min IV Q24H [facility]VIZ; Protocol Stop: 10/12/20 23:01 Last Admin: 10/07/20 23:19 Dose: 5.25 mls/min Documented by: Ketorolac Tromethamine (Ketorolac 30 Mg/Ml Vial) 30 mg IV Q6H PRN PRN Reason: Pain Stop: 10/13/20 13:49 Last Admin: 10/08/20 14:10 Dose: 30 mg Documented by: Lisinopril (Lisinopril 10 Mg Tab) 10 mg PO [facility] Stop: 11/06/20 20:59 Miscellaneous Information (Daptomycin Consult Active) 1 ea N/A UD PRN PRN Reason: Consult Stop: 11/05/20 20:36 Miscellaneous Information (Piperacill/Tazobac Consult Active) 1 ea N/A UD PRN PRN Reason: Consult Stop: 11/06/20 01:01 Nitroglycerin (Nitroglycerin Sl 0.4 Mg/Tab Tab) 0.4 mg SL UD PRN PRN Reason: Chest Pain Stop: 11/06/20 01:01 Ondansetron HCl (Ondansetron Inj 2 Mg/Ml 2 Ml Vial) 4 mg IV Q6H PRN PRN Reason: Nausea Stop: 11/06/20 01:01 Last Admin: 10/08/20 03:12 Dose: 4 mg Documented by: Oxycodone HCl (Oxycodone Hcl Ir 5 Mg Tab (Immediate Release)) 5 mg PO Q6H PRN PRN Reason: Pain Stop: 10/21/20 01:15 Last Admin: 10/07/20 10:35 Dose: 5 mg Documented by: Polyethylene Glycol (Polyethylene (Miralax) 17 Gm Pack) 17 gm PO DAILY PRN PRN Reason: Constipation Stop: 11/06/20 01:01 Sennosides (Senna 8.6 Mg Tab) 8.6 mg PO [facility] Stop: 11/06/20 20:59 Last Admin: 10/07/20 20:31 Dose: Not Given Documented by: Sertraline HCl (Sertraline Hcl 100 Mg Tablet) 100 mg PO [facility] Stop: 11/06/20 20:59 Last Admin: 10/07/20 20:31 Dose: 100 mg Documented by:
[2020-10-08] MEDS: ACETAMINOPHEN 500 MG TAB PO SCH (17:53)
[2020-10-08] MEDS: SENNA 8.6 MG TAB PO SCH ×2 (20:40→20:42)
[2020-10-08] MEDS: lisinopril 10 MG TAB PO SCH (20:40)
[2020-10-08] MEDS: SERTRALINE HCL 100 MG TABLET PO SCH (20:40)
[2020-10-08] MEDS: DAPTOmycin 525 MG in SYRINGE 0 ML IV SCH (22:52)
[2020-10-09] MEDS: traMADol HCL 50 MG TABLET PO PRN ×2 (00:20→15:02)
[2020-10-09] MEDS: PIPERACILLIN/TAZOBACTAM 4.5 GM in DEXTROSE 5% 100 ML IV SCH ×3 (00:20→18:07)
[2020-10-09] MEDS: ACETAMINOPHEN 500 MG TAB PO SCH ×3 (04:25→20:38)
[2020-10-09] MEDS: HYDROmorphone INJ 0.5 MG/0.5 ML SYR IV PRN ×4 (04:27→22:19)
[2020-10-09] MEDS: DOCUSATE SODIUM 100 MG CAP PO SCH ×2 (07:48→19:51)
--- NOTE | 2020-10-09 09:34 | Surgery Progress Note ---
Date of Service October 09, 2020 Assessment & Plan (1) Abdominal wall abscess: begin dressings wound nurse consult cellulitis improved likely can discharge in AM with plan for at home dressings work as tolerated Present on Admission?: Yes Admission and Anticipated Discharge Date Admission Date: October 06, 2020 Subjective pain controlled doing well Review of Systems Constitutional: no fever and no chills Respiratory: no dyspnea Cardiovascular: no chest pain Gastrointestinal: no abdominal pain, no nausea and no vomiting Integumentary: + erythema Physical Exam Constitutional: well developed, well nourished and + obese Neck: trachea midline Gastrointestinal (Abdomen): Inspection/Auscultation: + abdominal surgical incision (wound clean and granulating; cellulitis improving); abdomen not distended Results & Data ([facility]) Vital Signs (Past 12 Hours) Vital Signs Temp Pulse Resp BP Pulse Ox Pulse Ox 10/09/20 08:38 96 10/09/20 07:59 36.4 C L 73 16 125/79 96 10/09/20 00:02 36.4 C L 64 18 112/73 96
[2020-10-09] MEDS ORDERED: ZOLPIDEM TARTRATE 5 MG TAB PO PRN (13:14)
--- NOTE | 2020-10-09 16:56 | Hospitalist Progress Note ---
Date of Service October 09, 2020 Assessment & Plan (1) Sepsis: Resuscitated. Continues on broad spectrum antibiotics pending culture results. She is s/p I&D POD 1, pain meds as required. (2) Abdominal wall abscess: plan as above. she is improved. continue another day of IV abx and then will likely convert her to something PO in preparation for discharge. (3) Abdominal wall cellulitis: appears resolved since I&D (4) Crohns disease: chronic, stable on Imuran (azathioprine) which is currently held in the setting of sepsis. Will restart when infection treatment is complete. Avoid excessive NSAIDs. (5) Hypertension: around goal, cont lisinopril per home regimen (6) Anxiety: Cont daily sertraline with PRN clonazepam per home regimen. (7) Morbid obesity with BMI of 50.0-59.9, adult: (8) DVT prophylaxis: Lovenox Full Code Dispo- home pending clinical improvement, likely next 1-2 days pending surgical clearance for home. Faith Livingston DO [facility] Hospitalist Admission and Anticipated Discharge Date Admission Date: October 06, 2020 Subjective cc: presented wtih abdominal abscess s/p I&D, POD #1 doing well but pain is still an issue, requiring IV dilaudid still on IV abx broad spectrum-wound cultures have not been able to speciate anything to date clinically she continues to improve encouraged ambulation--question to surgery regarding need for abdominal binder with ambulation for support patient requesting sleep aid overnight Review of Systems Review of Systems: All systems reviewed & are unremarkable except as noted in Subjective Physical Exam Physical Exam: CONSTITUTIONAL: obese, vitals as above, generally well- appearing EYES: normal conjunctivae, no scleral icterus ENT: external ear and nose normal, MMM RESPIRATORY: clear to auscultation bilaterally, no crackles, rales or wheezes, normal respiratory effort CARDIOVASCULAR: regular rate and rhythm, S1 and 2 heard without murmurs, gallops or rubs, no JVD, no peripheral edema GASTROINTESTINAL: multiple skin folds with surgical incision in LLQ abdomen covered with dressing that is c/d/i. Otherwise abdomen is soft and not distended or guarded. MUSCULOSKELETAL: strength 5/5 throughout, head is normocephalic and atraumatic, neck supple, normal palpation of chest wall without tenderness SKIN: warm and dry, lesion as above. NEUROLOGIC: CN 2-12 grossly intact, normal speech, no gross focal deficits. PSYCHIATRIC: alert cooperative and oriented to person, place and time. Results & Data Results & Data ([facility]) Vital Signs (Past 12 Hours) Vital Signs Temp Pulse Resp BP Pulse Ox Pulse Ox 10/09/20 15:25 36.8 C 78 16 118/70 94 10/09/20 08:38 96 10/09/20 07:59 36.4 C L 73 16 125/79 96 Medications Administered Current Inpatient Medications Acetaminophen (Acetaminophen 500 Mg Tab) 1,000 mg PO Q8 [facility] Stop: 11/07/20 17:59 Last Admin: 10/09/20 13:45 Dose: 1,000 mg Documented by: Clonazepam (Clonazepam 0.5 Mg Tab) 0.5 mg PO DAILY PRN PRN Reason: Anxiety Stop: 11/06/20 01:01 Dicyclomine HCl (Dicyclomine Hcl 10 Mg Cap) 10 mg PO QID PRN PRN Reason: Cramps Stop: 11/06/20 01:01 Docusate Sodium (Docusate Sodium 100 Mg Cap) 100 mg PO BID [facility] Stop: 11/06/20 08:59 Last Admin: 10/09/20 07:48 Dose: Not Given Documented by: Hydromorphone HCl (Hydromorphone Inj 0.5 Mg/0.5 Ml Syr) 0.5 mg IV Q3H PRN PRN Reason: Pain Stop: 10/21/20 01:01 Last Admin: 10/09/20 16:16 Dose: 0.5 mg Documented by: Hydromorphone HCl (Hydromorphone Inj 1 Mg/Ml Syringe) 1 mg IV Q3H PRN PRN Reason: Severe Pain Stop: 10/21/20 09:37 Last Admin: 10/07/20 22:11 Dose: 1 mg Documented by: Piperacillin Sod/Tazobactam (Sod 4.5 gm/ Dextrose) 120 mls @ 30 mls/hr IV Q8H [facility]; Protocol Stop: 10/14/20 01:59 Last Infusion: 10/09/20 13:46 Dose: Infused Documented by: Daptomycin 525 mg/ Syringe 10.5 mls @ 5.25 mls/min IV Q24H [facility]; Protocol Stop: 10/12/20 23:01 Last Admin: 10/08/20 22:52 Dose: 5.25 mls/min Documented by: Ketorolac Tromethamine (Ketorolac 30 Mg/Ml Vial) 30 mg IV Q6H PRN PRN Reason: Pain Stop: 10/13/20 13:49 Last Admin: 10/08/20 22:56 Dose: 30 mg Documented by: Lisinopril (Lisinopril 10 Mg Tab) 10 mg PO HS [facility] Stop: 11/06/20 20:59 Last Admin: 10/08/20 20:40 Dose: 10 mg Documented by: Miscellaneous Information (Daptomycin Consult Active) 1 ea N/A UD PRN PRN Reason: Consult Stop: 11/05/20 20:36 Miscellaneous Information (Piperacill/Tazobac Consult Active) 1 ea N/A UD PRN PRN Reason: Consult Stop: 11/06/20 01:01 Nitroglycerin (Nitroglycerin Sl 0.4 Mg/Tab Tab) 0.4 mg SL UD PRN PRN Reason: Chest Pain Stop: 11/06/20 01:01 Ondansetron HCl (Ondansetron Inj 2 Mg/Ml 2 Ml Vial) 4 mg IV Q6H PRN PRN Reason: Nausea Stop: 11/06/20 01:01 Last Admin: 10/08/20 03:12 Dose: 4 mg Documented by: Oxycodone HCl (Oxycodone Hcl Ir 5 Mg Tab (Immediate Release)) 5 mg PO Q6H PRN PRN Reason: Pain Stop: 10/21/20 01:15 Last Admin: 10/07/20 10:35 Dose: 5 mg Documented by: Polyethylene Glycol (Polyethylene (Miralax) 17 Gm Pack) 17 gm PO DAILY PRN PRN Reason: Constipation Stop: 11/06/20 01:01 Sennosides (Senna 8.6 Mg Tab) 8.6 mg PO HS [facility] Stop: 11/06/20 20:59 Last Admin: 10/08/20 20:42 Dose: Not Given Documented by: Sertraline HCl (Sertraline Hcl 100 Mg Tablet) 100 mg PO HS [facility] Stop: 11/06/20 20:59 Last Admin: 10/08/20 20:40 Dose: 100 mg Documented by: Zolpidem Tartrate (Zolpidem Tartrate 5 Mg Tab) 5 mg PO HS PRN PRN Reason: Sleep Stop: 11/08/20 13:13
[2020-10-09] MEDS: oxyCODONE HCL IR 5 MG TAB (IMMEDIATE RELEASE) PO PRN (18:18)
[2020-10-09] MEDS: SENNA 8.6 MG TAB PO SCH (19:51)
[2020-10-09] MEDS: SERTRALINE HCL 100 MG TABLET PO SCH (20:39)
[2020-10-09] MEDS: lisinopril 10 MG TAB PO SCH (20:39)
[2020-10-09] MEDS: DAPTOmycin 525 MG in SYRINGE 0 ML IV SCH (22:17)
[2020-10-10] MEDS: PIPERACILLIN/TAZOBACTAM 4.5 GM in DEXTROSE 5% 100 ML IV SCH ×2 (01:24→09:59)
[2020-10-10] MEDS: oxyCODONE HCL IR 5 MG TAB (IMMEDIATE RELEASE) PO PRN ×2 (02:27→10:05)
[2020-10-10] MEDS: ACETAMINOPHEN 500 MG TAB PO SCH (05:15)
[2020-10-10 07:12] LABS: Hematocrit (blood only) 32.2 % (37-47); Hemoglobin 10.4 g/dL (12.0-16.0); Mean Corpuscular Hemoglobin 28.2 pg (25-34); Mean Corpuscular Hgb Conc 32.3 g/dL (32-36); Mean Corpuscular Volume 87.3 fL (80-100); Mean Platelet Volume 8.5 fL (7.4-10.4); Platelet Count 322 K/uL (130-400); RDW Coefficient of Variation 13.7 % (11.5-14.5); RDW Standard Deviation 43.8 fL (36.4-46.3); Red Blood Count 3.69 M/uL (4.2-5.4); White Blood Count 8.84 K/uL (4.8-10.8)
[2020-10-10 07:47] LABS: BUN Creatinine Ratio 13.5 (10-20); Calcium 8.5 mg/dl (8.5-10.1); Creatinine Clr Calc Pharmacy 160.2 ml/min; Est GFR (African American) 128.8; Est GFR (Non-African American) 111.1; Potassium 3.6 mmol/L (3.5-5.1)
[2020-10-10] MEDS: DOCUSATE SODIUM 100 MG CAP PO SCH (08:15)
[2020-10-10] MEDS: HYDROmorphone INJ 0.5 MG/0.5 ML SYR IV PRN (12:03)
--- NOTE | 2020-10-10 14:13 | Discharge Summary ---
Date of Service October 10, 2020 Admission HPI Per Admitting Provider HISTORY OF PRESENT ILLNESS: A 35-year-old female with past medical history significant for prediabetes, Crohn's disease of colon, morbid obesity, history of dermatitis, history of herpes simplex gingival stomatitis, anxiety, presents with abdominal wall infection. The patient says since last Saturday, she is having abdominal erythema and pain, it got worse today and also she was in the ER yesterday and given IV antibiotics, daptomycin and Zosyn and CAT scan showed no drainable collection and she was discharged on Bactrim and Keflex, but the pain got worse and she came to the ER and she was tachycardic, heart rate in 130s when she came in. Her white count is 14.9, which is down from 15.2 yesterday. SARS-CoV-2 negative. Again, pelvis CT was done and preliminary report shows soft tissue induration with fluid and air collection in the region of the skin marker, now measuring 3.6 x 5.1 x 2.1 cm. In the ER when they tried to get wound cultures, the abscess started draining. Patient says the pain was very severe when she came in but now the pain is under control. HAd low-grade fevers at home. Denies any diarrhea or constipation, no blood in the stools. Normal bladder movements. Denies any chest pain, no shortness of breath, no cough, no headache, no blurred vision, no earache, no runny nose, no sore throat, no nausea, no vomiting. Appetite is not that great the last few days. Currently resting comfortably and hemodynamically stable. Admission Exam Per Admitting Provider PHYSICAL EXAMINATION: GENERAL: The patient is morbidly obese, not in acute distress. VITAL SIGNS: Temperature 37, pulse when she came in was like 130s, currently 104, respiratory rate 21, blood pressure 124/69, oxygen 95% on room air. HEENT: Pupils equal, round, reactive to light. Oral mucosa dry. NECK: No JVD, no neck masses seen. CARDIOVASCULAR: S1, S2, regular rate and rhythm, no murmur, no gallop. RESPIRATORY SYSTEM: Normal AP diameter. No accessory muscle use. No wheezing, no crackles. ABDOMEN: Soft, bowel sounds sluggish. Abdominal wall inflammation with erythema seen over the pannus and mild drainage seen in the left lower pannus. CENTRAL NERVOUS SYSTEM: Nonfocal. EXTREMITIES: No edema, no erythema. Principal Diagnosis sepsis 2/2 abdominal wall abscess s/p incision and drainage abdominal wall cellulitis Chron's disease Discharge Exam CONSTITUTIONAL: obese, vitals as above, generally well-appearing EYES: normal conjunctivae, no scleral icterus ENT: external ear and nose normal, MMM RESPIRATORY: clear to auscultation bilaterally, no crackles, rales or wheezes, normal respiratory effort CARDIOVASCULAR: regular rate and rhythm, S1 and 2 heard without murmurs, gallops or rubs, no JVD, no peripheral edema GASTROINTESTINAL: multiple skin folds with surgical incision in LLQ abdomen covered with dressing that is c/d/i. Otherwise abdomen is soft and not distended or guarded. MUSCULOSKELETAL: strength 5/5 throughout, head is normocephalic and atraumatic, neck supple, normal palpation of chest wall without tenderness SKIN: warm and dry, lesion as above. NEUROLOGIC: CN 2-12 grossly intact, normal speech, no gross focal deficits. PSYCHIATRIC: alert cooperative and oriented to person, place and time. Discharge Data Allergies Allergy/AdvReac Type Severity Reaction Status Date / Time infliximab Allergy Severe SOB, FACE Verified 10/06/20 20:58 FLUSHING Consultations 10/06/20 22:57 ED Decision to Admit Stat 10/07/20 01:02 Consult Case Management - Discharge Planning Routine 10/07/20 08:00 Consult General Surgery Routine Procedures Performed Operation Date: 10/08/20 08:50 Actual Procedures p Incision and Drainage of Abdominal Wall Abscess with Full Thickness Debridement(Left) - Asher Alanis MD Ordered Studies [facility], [id number] XRay Report Patient: JARRED ESPARZA EAdmit Date: 10/06/20MR#: [id number]: [address] ID:[id number]: Date: 1985City Zip: [place], [place] [address]Sra: 35Location: 2WSex: FRoom/Bed: [id number] Phy: Faith Livingston, DODiagnosis: ABDOMINAL WALL INFECTIONPri Phy: Honey Nolasco, DOService Date: 10/06/20[facility] Phy:Interpreting Phy: Roni Singh [facility] Phy: Moshe Robles MD Ordering Phy: Michelle Harley M.D. cc: ~ XR chest 1V portable HISTORY: fever, tachycardia COMPARISON: Chest 11/03/2017. FINDINGS: The lungs are clear. Cardiac silhouette is normal in size. No pleural effusions. No pneumothorax. IMPRESSION: No acute process. ACT 112: Negative or not required by law. Electronically signed by: Roni Singh M.D. 10/07/2020 7:40 AM Dictated: 10/07/2039Transcribed: 10/07/20 0739 [facility], [id number] CT Scan Report Patient: JARRED ESPARZA EAdmit Date: 10/06/20#: [id number]: [address]ct ID:[id number]: [facility]: 1985[facility] Zip: [place], [place] [address]Mnk: 35Location: 2WSex: FRoom/Bed: [id number] Phy: Faith Livingston DODiagnosis: ABDOMINAL WALL INFECTIONPri Phy: Honey Nolasco, DOService Date: 10/06/20Fa Phy:Interpreting Phy: Roni Singh [facility] Phy: Moshe Robles MD Ordering Phy: Michelle Harley M.D. cc: ~ CT pelvis w/IV con only HISTORY: L abd wound, cellulitis, sepsis TECHNIQUE: Multiaxial CT images of the pelvis were performed following the intravenous administration of 119 cc of Optiray 320 contrast. COMPARISON STUDY: Abdomen and pelvis CT 10/06/2020. FINDINGS: There is again noted skin thickening and subcutaneous fat stranding along the left and anterior abdominal wall/pannus. There is also seen within the lower anterior pelvic wall. In the left lower quadrant pannus there is focal collection of gas and small amount of fluid within the thickened skin and subcutaneous soft tissues. This collection measures approximately 4.2 x 3.0 cm. This could represent a skin ulceration with underlying abscess and/or necrotizing fasciitis. There is left external iliac and inguinal lymphadenopathy. The bladder, uterus, and ovaries are within normal limits. Prior sigmoid anastomosis. No pelvic free fluid. The visualized loops of bowel show no wall thickening or obstruction. No suspicious lytic or blastic osseous lesions within the pelvis. IMPRESSION: 1. Redemonstration of the skin thickening and subcutaneous fat stranding along the left and anterior abdominal wall/pannus. There is also a focal 4.2 x 3.0 cm gas and fluid collection within the left lower quadrant thickened skin and subcutaneous soft tissues. This has slightly increased in size. This could represent a skin ulceration with underlying abscess and/or necrotizing fasciitis. 2. Left inguinal and external iliac lymphadenopathy is likely reactive. ACT 112: Negative or not required by law. Electronically signed by: Roni Singh M.D. 10/07/2020 7:28 AM Dictated: 10/07/20722Transcribed: 10/07/20722 Hospital Course (1) Sepsis: (2) Abdominal wall abscess: (3) Abdominal wall cellulitis: (4) Crohns disease: (5) Morbid obesity with BMI of 50.0-59.9, adult: The patient is a 35-year-old female with a history of Crohn's disease on Imuran and morbid obesity who presented to the ER for the second time in a week reporting worsening abdominal pain with erythema after being discharged on Bactrim and Keflex. On arrival she appeared to be developing sepsis with a heart rate in the 130s, sinus rhythm, and elevated white count of [address] was performed revealing a collection of fluid and air concerning for an abscess with additional concern for possible necrotizing fasciitis. Abscess was increased from recent imaging earlier in the week. She was admitted to the hospitalist service on broad-spectrum antibiotics and her Imuran was held. General surgery was consulted and performed incision and drainage in the OR on 10/08. She had abdominal cellulitis around the wound that improved after source control with I&D. She was continued on daptomycin and Zosyn for the course of her hospitalization. Wound cultures did not reveal a specific organism. She was advised to continue the same antibiotics she had received pre-hospitalization, Keflex and Bactrim, until she was able to follow-up with the wound clinic at the end of the week. She decided against placement of a wound VAC during the hospital stay, but this was recommended and scheduled to be performed in the wound clinic at the end of the week. At time of discharge she was hemodynamically stable and afebrile and tolerating p.o. She was mentating and ambulating at baseline and was oxygenating well on room air. She was sent home in stable condition with close primary care follow-up recommended. Imuran was restarted at discharge. Total Time Total Time Spent Total Time Spent (In Minutes): 60 Total Time Includes: Examination of the Patient, Discharge Planning, Medication Reconciliation and Communication With Other Providers Discharge Plan Discharge Items Patient Disposition: Home - Home Health Services Reason For Visit: ABDOMINAL WALL INFECTION Discharge Diagnosis: sepsis 2/2 abdominal wall abscess s/p incision and drainage abdominal wall cellulitis Chron's disease Condition on Discharge: Good Activity: Resume your previous activity Non-emergency contact: Primary Care Provider Call non-emergency contact if: you have any medication questions, your symptoms worsen, your pain is not controlled, your pain is worsening, your pain is unusual for you, you have a fever and your wound has increased drainage Follow-up/Referrals: Honey Nolasco DO [Primary Care Provider] - (Date & Time 10/14/2020 10:00 AM Provider Negro Bernal MD Department Family Practice [facility] ) Diet: Regular Addtl Attending Provider Instructions: Please take all medications as instructed on discharge list below. You are being set up with Home Health for wound care and daily wound packing until definitive wound vac placement can take place later this week with the wound clinic. Please continue your antibiotics previously prescribed until followup with the wound care clinic. If you experience any fever, worsening pain in your wound, redness or increased drainage in this area, please seek immediate medical at tention. Please follow all post operative wound cleaning instructions and activity restrictions per Dr. Alanis. It is recommended that you follow up with your primary care provider in the next week to ensure you are still healing well and not having any issues since leaving the hospital. It is fine to restart your Imuran, however, it is also a good idea to review this with your card tender. It was a pleasure taking care of you! Please call if you have any questions or problems. You can reach a [facility] on duty at [facility] 24 hours a day by calling [phone]. Take care of yourself. Faith Livingston DO [facility] Hospitalist Pending Studies at Discharge: Yes Studies:: finalized culture results. Stand-Alone Forms: My [facility] Medications and DC Order Prescriptions: Continued clonazepam 0.5 mg tablet 0.5 mg PO DAILY PRN (Reason: Anxiety) RF: 0 drospirenone-ethinyl estradiol [BARBARA (28)] 3-0.02 mg Tablet 1 tab PO HS RF: 0 dicyclomine 10 mg capsule 10 mg PO QID PRN (Reason: Cramps) RF: 0 azathioprine 50 mg tablet 100 mg PO HS RF: 0 sertraline 100 mg tablet 100 mg PO HS RF: 0 lisinopril 10 mg Tablet 10 mg PO HS RF: 0 sulfamethoxazole-trimethoprim [Bactrim DS] 800-160 mg tablet 1 tab PO BID Qty: 20 RF: 0 cephalexin [Keflex] 500 mg capsule 500 mg PO Q6H 10 Days Qty: 40 RF: 0 oxycodone 5 mg tablet 5 mg PO Q6H PRN (Reason: pain) Qty: 14 RF: 0 sennosides [Senokot] 8.6 mg tablet 8.6 mg PO HS Qty: 30 RF: 0 docusate sodium [Colace] 100 mg capsule 100 mg PO BID Qty: 60 RF: 0 Discharge Orders: Discharge Order (Routine); Ordered 10/10/20 Ordered By: Faith Stanley/Other Patient Handouts: Prediabetes, Exercise to Manage Your Blood Sugar, 5 Steps for Eating Healthier, A1C Admission Data Admit Date/Time: 10/06/20 23:56 Attending Provider: Faith Livingston Admit Provider: Moshe Robles Primary Care Provider: Honey Nolasco Other Providers: Moshe Robles ; Gonzalez Garcia ; [facility] Other Interventions: Discharge Summary Assessment (RN) Last Done: 10/10/20 14:30
[2020-10-10] MEDS ORDERED: DAPTOmycin 375 MG in SYRINGE 0 ML IV SCH (23:00)
== END 2020-10-10 14:56 | disposition home health service (06) | DRG 579 ==
LOC: ED 20:11 → 2W 23:56